=== PATIENT | male | born 1955 | race Caucasian/White ===

== ENCOUNTER 2022-05-15 07:37 | Emergency (ER) | payer MEDICARE, BC, SELFPAY ==
[2022-05-15] VITALS (9 sets, daily range): BP systolic 107–129; BP diastolic 59–69; PULSE 51–62; RESP 16–18; TEMP 36.3; O2SAT 96–99; BMI 25.8
--- NOTE | 2022-05-15 08:05 | CRLHL7_ITS ---
For Patients: As a result of the Century Cures Act, medical imaging exams and procedure reports are released immediately into your electronic medical record. You may view this report before your referring provider. If you have questions, please contact your health care provider. INDICATION: Right flank pain. TECHNIQUE: CT abdomen and pelvis without contrast. COMPARISON: 01/18/2021. FINDINGS: Lower chest: Unremarkable. Liver: Normal in size and attenuation. No suspicious masses. Gallbladder and bile ducts: No stones or inflammation. No biliary dilatation. Pancreas: Unremarkable. No mass or inflammation. Spleen: Normal in size. No masses. Adrenal glands: Normal in size. No nodules. Kidneys: A 5 millimeter stone in the distal right ureter results and mild right hydroureteronephrosis. Additional small nonobstructing right renal calculus. No left renal calculi or left hydronephrosis. Left renal cyst. GI tract: Unremarkable. Normal in caliber. No sign of mass or inflammation. Prior partial colectomy with ileocolic anastomosis. Vasculature: Atherosclerosis. 3.0 centimeter infrarenal abdominal aortic aneurysm. 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 Lymph nodes: No lymphadenopathy. Peritoneum/Abdominal Wall: Unremarkable. No sign of mass or infiltration. No free air or significant free fluid. Pelvis: Prostatomegaly Bones: No acute osseous abnormality. Degenerative spondylosis IMPRESSION: 1. 5 millimeter stone in the distal right ureter results in mild right hydronephrosis. 2. Additional small nonobstructing right renal calculus. 3. 3.0 centimeter infrarenal abdominal aortic aneurysm. 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 Please note that all CT scans at this facility use dose modulation, iterative reconstruction, and/or weight-based dosing when appropriate to reduce radiation dose to as low as reasonably achievable. Dictated by Shan Jackman MD @ 05/15/2022 8:46:40 AM (Electronically Signed)
[2022-05-15] MEDS: KETOROLAC 30 MG/ML inj IVP ×2 (08:20→10:49)
[2022-05-15] MEDS: ONDANSETRON 2 MG/ML inj 4 MG IVP (08:20)
[2022-05-15] MEDS: 0.9 % SODIUM CHLORIDE 1000 ml 1,000 ML IV ×3 (08:30→10:19)
[2022-05-15 08:32] LABS: Basophils Percent Auto 0.5 % (0.0-3.0); Eosinophils Percent Auto 6.4 % (0.0-7.0); Hematocrit 42.1 % (37.0-53.0); Hemoglobin* 14.4 gm/dL (13.5-17.5); Immature Granulocytes Pct Auto 0.2 %; Lymphocytes Percent Auto 26.4 % (20-44); Mean Corpuscular HGB Conc 34 gm/dL (32-36); Mean Corpuscular Hemoglobin 33 pg (26-34); Mean Corpuscular Volume 96 fL (80-100); Monocytes Percent Auto 8.6 % (0.0-11.0); Neutrophils Percent Auto 57.9 % (42.0-72.0); Platelet Count* 222 K/uL (140-440); RDW Coefficient of Variation % 12.9 % (11.5-15.5)
--- NOTE | 2022-05-15 08:37 | ED_ITS ---
HPI - Abdominal Pain General Date Seen: 05/15/22 Chief Complaint: Flank Pain Stated Complaint: poss kidney stone Time Seen by Provider: 05/15/22 07:43 Source: patient and family Mode of arrival: ambulatory Limitations: no limitations History of Present Illness HPI narrative: Patient is a ej 58-year-old gentleman who is retired presents here with his with an hour hour and a half history of right-sided abdominal pain, it started in his back and wraps around goes to his groin, he has a past history of kidney stones associated with this. With much the same pain pattern. Previous instrumentation was done, after he felt the past these, he has a urologist up in the [facility] who comes down to see him, . Has some nausea but has not vomited, did not take anything for the discomfort, denies any diarrhea dysuria frequency hematuria associated with this. Previous appendectomy done but he still has his gallbladder. Does not seem to have any thing that makes it better at the current time. Pain comes and goes in a colicky type presentation. Related Data Home Medications Medication Instructions Recorded Confirmed betamethasone dipropionate 0.05 % 1 topical BID 10/12/21 05/09/22 lotion doxycycline monohydrate 100 mg mg PO BID 10/12/21 05/09/22 capsule fexofenadine 180 mg tablet 180 mg PO Q24H 10/12/21 05/09/22 (Allergy Relief (fexofenadine)) fluticasone propionate 50 2 intranasal DAILY 10/12/21 05/09/22 mcg/actuation nasal spray,suspension rfpwdojhgzy-zqdxaxcchre-idz C 500 tab PO DAILY 10/12/21 05/09/22 mg-400 mg-20 mg tablet hydrocodone 5 mg-acetaminophen 325 tab PO PRN 10/12/21 05/09/22 mg tablet ketorolac 10 mg tablet mg PO TID PRN 10/12/21 05/09/22 lansoprazole 15 mg capsule,delayed 15 mg PO QDAY 10/12/21 05/09/22 release stidkylr-qsvsldyxj-dlynjryza 3.5 4 drp otic (ear) TID 10/12/21 05/09/22 mg-10,000 unit/mL-1 % ear drops,susp ondansetron HCl 4 mg tablet mg PO PRN 10/12/21 05/09/22 oxycodone 5 mg tablet mg PO PRN 10/12/21 05/09/22 tamsulosin 0.4 mg capsule 0.4 mg PO DAILY 10/12/21 05/09/22 Allergies Allergy/AdvReac Type Severity Reaction Status Date / Time oxycodone AdvReac Intermediate Verified 05/09/22 10:39 UNLISTED ALLERGEN (INCLUDE Allergy Unknown Uncoded 05/09/22 10:39 DETAIL I VENOM-YELLOW JACKET Allergy Unknown Uncoded 05/09/22 10:39 Review of Systems Status of ROS Reports: 10 or more systems reviewed and unremarkable except as noted in History and below [facility] Social History Smoking Status: Never smoker Non-prescribed substance use: denies use Exam Narrative: Exam Narrative: Patient is speaking normally, no problem with slurring words, oriented x3. Head eyes ears nose and throat exam show equal pupils, no scleral icterus, extraocular muscles are normal, no facial droop, speech is normal, trachea normal and midline. Thyroid normal midline palpable not enlarged. Chest shows symmetrical rise bilaterally, normal auscultation with no wheezes, no increased work of breathing, no overt bruising or lesions seen, no tenderness is noted on auscultation. Heart sounds normal with no S3-S4 no murmurs clicks or gallops. Abdomen shows no obvious masses or hepatosplenomegaly, no organomegaly, bowel sounds are normal in all quadrants. No tenderness is noted also in all qu adrants. Upper and lower extremities show normal power, normal range of motion, pulses are normal, sensations normal, fine motor movements are normal, pelvis is stable to rocking. Cervical spine shows normal range of motion, and palpably not tender. Thoracic spine shows normal range of motion, and palpably not tender, lumbar spine shows no tenderness to palpation percussion and is otherwise normal range of motion. Skin shows no rashes, petechiae or eccymosis. Const: Vital Signs, click to edit/add: Vital Signs - 24 hr 05/15/22 07:47 05/15/22 08:42 05/15/22 09:00 Temperature 97.4 F L Pulse Rate 52 L 51 L Pulse Rate [Right Pulse Oximeter] 58 L Respiratory Rate 18 Blood Pressure Blood Pressure [Ri ght Upper Arm] 128/63 Pulse Oximetry 97 96 97 Oxygen Delivery Me thod Room Air Room Air 05/15/22 09:02 05/15/22 09:30 05/15/22 09:32 Temperature Pulse Rate 54 L 54 L 55 L Pulse Rate [Right Pulse Oximeter] Respiratory Rate Blood Pressure 107/62 115/62 Blood Pressure [Ri ght Upper Arm] Pulse Oximetry 97 98 97 Oxygen Delivery Me thod 05/15/22 10:00 05/15/22 10:02 05/15/22 12:09 Temperature Pulse Rate 57 L 58 L Pulse Rate [Right Pulse Oximeter] 62 Respiratory Rate 16 Blood Pressure 111/59 L Blood Pressure [Ri ght Upper Arm] 129/69 Pulse Oximetry 99 98 99 Oxygen Delivery Me thod Documenting provider has reviewed patient's vital signs: yes Course Course Hospital Course: Discussed with the patient we will start an IV, will give some Toradol and Zofran as this has worked very well for him in the past we will give him IV fluids we will get some labs, and then we will get a CT to further delineate this. Reevaluation(s) Reevaluation #1: Bc feels much improved, his pain is markedly gone away. He still has not been able to urinate for us. And we will give another L of fluids. I went over the results of his test which showed the distal 5 mm right-sided stone in his ureter. He did have a flu jirg-fn-vvopogtz hydronephrosis, gave him copies of his CT and also the report. He has a small 3 cm abdominal aneurysm in iliac aneurysm also. This will need to be followed up with likely ultrasound in 3-6 months. Time: 09:32 Reevaluation #2: Mr. Veliz still does not have the urge to pee, I think it would be reasonable let him go home, he can bring a urine back, follow-up for his abdominal aortic aneurysm and iliac aneurysm, with his regular provider for screening. This will need to be done every 3 months to 6 months per the recommendations. He was comfortable this. Time: 13:07 Vital Signs Vital signs: Initial Vital Signs Temperature 97.4 F L 05/15/22 07:47 Temperature Source Temporal Artery Scan 05/15/22 07:47 Pulse Rate 58 L 05/15/22 07:47 Respiratory Rate 18 05/15/22 07:47 Blood Pressure 128/63 05/15/22 07:47 Blood Pressure Mean 84 05/15/22 07:47 Blood Pressure Position Sitting 05/15/22 07:47 Pulse Oximetry 97 05/15/22 07:47 Oxygen Delivery Method 05/15/22 07:47 Vital Signs Temperature 97.4 F L 05/15/22 07:47 Pulse Rate 58 L 05/15/22 07:47 Respiratory Rate 18 05/15/22 07:47 Blood Pressure 128/63 05/15/22 07:47 Pulse Oximetry 97 05/15/22 07:47 Oxygen Delivery Method 05/15/22 07:47 Temperature 97.4 F L 05/15/22 07:47 Pulse Rate 62 05/15/22 12:09 Respiratory Rate 16 05/15/22 12:09 Blood Pressure 129/69 05/15/22 12:09 Pulse Oximetry 99 05/15/22 12:09 Oxygen Delivery Method 05/15/22 08:42 MDM - Abdominal Pain MDM Narrative Medical decision making narrative: During this evaluation of this patient I considered multiple differential diagnosis is which included the life-threatening such as appendicitis, aortic aneurysm, mesenteric ischemia, bowel perforation, volvulus, and bowel obstruction. Other differential diagnosis is include but are not limited to cholecystitis, pancreatitis, hepatitis, gastritis, GERD, diverticulitis, peptic ulcer disease, pyelonephritis/UTI, renal colic/stone, testicular torsion as well as other acute scrotal processes, inflammatory bowel disease, as well as other etiologies Medical Records Attestation: I reviewed the patient's medical records. Lab Data Attestation: I reviewed the patient's lab results. Labs: Lab Results 05/15/22 05/15/22 05/15/22 Range/Units 08:05 08:20 08:20 WBC 4.20 L (4.50-11.00) K/uL RBC 4.40 (4.30-5.90) m/uL Hgb 14.4 (13.5-17.5) gm/dL Hct 42.1 (37.0-53.0) % MCV 96 (80-100) fL MCH 33 (26-34) pg MCHC 34 (32-36) gm/dL RDW Coeff of Ronald 12.9 (11.5-15.5) % Plt Count 222 (140-440) K/uL Neut % (Auto) 57.9 (42.0-72.0) % Lymph % (Auto) 26.4 (20-44) % Hanson % (Auto) 8.6 (0.0-11.0) % Eos % (Auto) 6.4 (0.0-7.0) % Baso % (Auto) 0.5 (0.0-3.0) % Neut # (Auto) 2.40 (1.7-7.0) K/uL Lymph # (Auto) 1.10 (0.90-2.90) K/uL Hanson # (Auto) 0.40 (0.00-0.90) K/UL Eos # (Auto) 0.30 (0.00-0.50) K/uL Baso # (Auto) 0.00 (0.00-0.30) K/uL Sodium 140 (135-149) mmol/L Potassium 3.7 (3.6-5.1) mmol/L Chloride 113 (96-114) mmol/L Carbon Dioxide 25 (20-32) mmol/L BUN 16 (7-30) mg/dL Creatinine 0.6 (0.5-1.5) mg/dL Estimated Creat Clear 73.00 Estimated GFR 105 ml/min Glucose 104 (60-115) mg/dL Calcium 9.0 (8.4-10.6) mg/dL Total Bilirubin 0.9 (0.1-1.5) mg/dL Direct Bilirubin 0.1 (0.0-0.5) mg/dL AST 25 (12-35) U/L ALT 19 (4-50) U/L Alkaline Phosphatase 76 (40-150) U/L C-Reactive Protein (0.5-1.0) mg/dL Total Protein 6.5 (6.0-8.3) g/dL Albumin 3.7 (3.3-5.0) g/dL SARS-CoV-2 (PCR) Negative SARS-CoV-2 (Negative) Influenza Type A (PCR) Negative PCR FLU A (Negative) Influenza Type B (PCR) Negative PCR FLU B (Negative) RSV (PCR) Negative PCR RSV (Negative) 05/15/22 Range/Units 08:20 WBC (4.50-11.00) K/uL RBC (4.30-5.90) m/uL Hgb (13.5-17.5) gm/dL Hct (37.0-53.0) % MCV (80-100) fL MCH (26-34) pg MCHC (32-36) gm/dL RDW Coeff of Ronald (11.5-15.5) % Plt Count (140-440) K/uL Neut % (Auto) (42.0-72.0) % Lymph % (Auto) (20-44) % Hanson % (Auto) (0.0-11.0) % Eos % (Auto) (0.0-7.0) % Baso % (Auto) (0.0-3.0) % Neut # (Auto) (1.7-7.0) K/uL Lymph # (Auto) (0.90-2.90) K/uL Hanson # (Auto) (0.00-0.90) K/UL Eos # (Auto) (0.00-0.50) K/uL Baso # (Auto) (0.00-0.30) K/uL Sodium (135-149) mmol/L Potassium (3.6-5.1) mmol/L Chloride (96-114) mmol/L Carbon Dioxide (20-32) mmol/L BUN (7-30) mg/dL Creatinine (0.5-1.5) mg/dL Estimated Creat Clear Estimated GFR ml/min Glucose (60-115) mg/dL Calcium (8.4-10.6) mg/dL Total Bilirubin (0.1-1.5) mg/dL Direct Bilirubin (0.0-0.5) mg/dL AST (12-35) U/L ALT (4-50) U/L Alkaline Phosphatase (40-150) U/L C-Reactive Protein < 0.5 L (0.5-1.0) mg/dL Total Protein (6.0-8.3) g/dL Albumin (3.3-5.0) g/dL SARS-CoV-2 (PCR) (Negative) Influenza Type A (PCR) (Negative) Influenza Type B (PCR) (Negative) RSV (PCR) (Negative) Imaging Data CT scan - abdomen: Attestation: I have reviewed the pertinent imaging results. My impression: 5 mm stone in the distal right UVJ with moderate hydronephrosis. Radiologist's impression: atient: ALYSSA VELIZ Facility:?[facility] Patient ID:?[id number] Site Patient ID:?[id number]. Site :?[id number] Study:?CT Abdomen/Pelvis W/O stone study-05/15/2022 8:35:36 AM Ordering Physician:Humza Romo Final Report: INDICATION: Right flank pain. TECHNIQUE: CT abdomen and pelvis without contrast. COMPARISON: 01/18/2021. FINDINGS: Lower chest: Unremarkable. Liver: Normal in size and attenuation. No suspicious masses. Gallbladder and bile ducts: No stones or inflammation. No biliary dilatation. Pancreas: Unremarkable. No mass or inflammation. Spleen: Normal in size. No masses. Adrenal glands: Normal in size. No nodules. Kidneys: A 5 millimeter stone in the distal right ureter results and mild right hydroureteronephrosis. Additional small nonobstructing right renal calculus. No left renal calculi or left hydronephrosis. Left renal cyst. GI tract: Unremarkable. Normal in caliber. No sign of mass or inflammation. Prior partial colectomy with ileocolic anastomosis. Vasculature: Atherosclerosis. 3.0 centimeter infrarenal abdominal aortic aneurysm. 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 Lymph nodes: No lymphadenopathy. Peritoneum/Abdominal Wall: Unremarkable. No sign of mass or infiltration. No free air or significant free fluid. Pelvis: Prostatomegaly Bones: No acute osseous abnormality. Degenerative spondylosis IMPRESSION: 1. 5 millimeter stone in the distal right ureter results in mild right hydronephrosis. 2. Additional small nonobstructing right renal calculus. 3. 3.0 centimeter infrarenal abdominal aortic aneurysm. 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 Please note that all CT scans at this facility use dose modulation, iterative reconstruction, and/or weight-based dosing when appropriate to reduce radiation dose to as low as reasonably achievable. Dictated by Shan Jackman MD @ 05/15/2022 8:46:40 AM (Electronic Signature) Discharge Plan Discharge Clinical Impression: Abdominal aortic aneurysm (AAA), Aneurysm artery, iliac, Urolithiasis, Renal colic on right side, Right nephrolithiasis Patient Disposition: Home w/ Parent or Adult Condition: Improved Instructions: Renal Colic (ED), Nonruptured Abdominal Aortic Aneurysm (DC), Lithotripsy (DC) Additional Instructions: Home rest continue to drink fluids, taking medications as directed, hold off on any ibuprofen for the next 8 hours, then you may start taking ibuprofen 600 mg 3 times a day. Need to let the Toradol washout of your system. I gave you prescription for narcotic, take the Vicodin 1-2 tablets p.o. q.i.d. as needed, if you have increasing nausea vomiting pain fevers chills the need to come back and be seen, follow-up with her primary care physician or Dr. Alicia in if he still of ongoing symptoms are back in the ER. Just have your drop off the urine back in the emergency room and we can run this to exclude bladder infection Prescriptions: No Action lansoprazole 15 mg capsule,delayed release(DR/EC) 15 mg PO QDAY twkqcrrgnwr-ioqrdfxrlum-vdp C 500-400-20 mg tablet PO DAILY fexofenadine [Allergy Relief (fexofenadine)] 180 mg tablet 180 mg PO Q24H oxycodone 5 mg tablet PO PRN ketorolac 10 mg tablet PO TID PRN ondansetron HCl 4 mg tablet PO PRN optugrrv-gtlzhbhnu-GB 3.5-10,000-1 mg/mL-unit/mL-% drops,suspension 4 drp otic (ear) TID betamethasone dipropionate 0.05 % lotion 1 topical BID hydrocodone-acetaminophen 5-325 mg tablet PO PRN fluticasone propionate 50 mcg/actuation spray,suspension 2 intranasal DAILY doxycycline monohydrate 100 mg capsule PO BID tamsulosin 0.4 mg capsule 0.4 mg PO DAILY Follow Up/Referrals: Mitesh Ayala MD [Primary Care Provider] - Stand Alone Forms: IngagePatient Info Instructions
[2022-05-15 08:41] LABS: Slide Review Reflex No
[2022-05-15 08:47] LABS: Albumin* 3.7 g/dL (3.3-5.0); Chloride* 113 mmol/L (96-114); Sodium* 140 mmol/L (135-149)
[2022-05-15 08:48] LABS: Potassium* 3.7 mmol/L (3.6-5.1)
[2022-05-15 08:50] LABS: Bilirubin Direct* 0.1 mg/dL (0.0-0.5); Bilirubin Total* 0.9 mg/dL (0.1-1.5); Blood Urea Nitrogen* 16 mg/dL (7-30); Carbon Dioxide* 25 mmol/L (20-32); Creatinine* 0.6 mg/dL (0.5-1.5); Estimated Glomerular Filt Rate 105 ml/min; Total Protein* 6.5 g/dL (6.0-8.3)
[2022-05-15 08:51] LABS: Alanine Aminotransferase* 19 U/L (4-50); Alkaline Phosphatase* 76 U/L (40-150); Aspartate Amino Transferase* 25 U/L (12-35); Glucose* 104 mg/dL (60-115)
[2022-05-15 09:06] LABS: C Reactive Protein* < 0.5 mg/dL (0.5-1.0)
[2022-05-15 09:16] LABS: PCR FLU A Negative PCR FLU A (Negative); PCR FLU B Negative PCR FLU B (Negative); PCR RSV Negative PCR RSV (Negative)
[2022-05-15 09:19] LABS: SARS PCR* Negative SARS-CoV-2 (Negative)
--- NOTE | 2022-05-15 10:52 | ED.NURSE ---
medicated for return of pain
[2022-05-15] MEDS: HYDROCODONE-ACETAMIN 5-325 MG 1 TAB PO (12:07)
[2022-05-15 14:04] LABS: Appearance Urine Cloudy (Clear); Bilirubin Urine Negative (Negative); Blood Urine 3+ (Negative); Color Urine Yellow (Yellow); Glucose Urine Negative (Negative); Ketones Urine 2+ (Negative); Leukocyte Esterase Urine Negative (Negative); Nitrite Urine Negative (Negative); Protein Urine 1+ (Negative); Specific Gravity Urine >= 1.030 (1.000-1.030); Urobilinogen Urine 0.2 (0.2-1.0); pH Urine 5.5 (5.0-8.5)
[2022-05-15 14:10] LABS: Squamous Epithelial Cell Urine Few (None-Few)
[2022-05-15 14:20] LABS: Amorphous Sediment Urine Few; Bacteria Urine Moderate; RBC Urine >100 (0-2)
[2022-05-15 14:21] LABS: Mucus Urine Moderate
== END 2022-05-15 13:05 | disposition home or self-care (01) ==
PROVIDERS: Emergency Provider Family Medicine; PCP Family Medicine
DX: I71.40 Abdominal aortic aneurysm, without rupture, unspecified (principal); N20.2 Calculus of kidney with calculus of ureter; I72.3 Aneurysm of iliac artery
CPT/HCPCS: 36415; 74176; 80048; 80076; 81001; 85025; 86140; 87086; 87502; 87634; 87635; 96374; 96375; 96376; 99284; A9270; J1885; J2405; J7030

== ENCOUNTER 2024-04-07 13:37 | Emergency (ER) | payer MEDICARE, BC, SELFPAY ==
[2024-04-07 13:45] VITALS: PULSE 73; RESP 16; TEMP 36.7; O2SAT 96; BMI 26.5
--- NOTE | 2024-04-07 14:10 | CRLHL7_ITS ---
For Patients: As a result of the Century Cures Act, medical imaging exams and procedure reports are released immediately into your electronic medical record. You may view this report before your referring provider. If you have questions, please contact your health care provider. Indication: Fall Technique: Right wrist 3 view Comparison: None Findings: Bones: Alignment is normal. No fractures or bone lesions. Joint spaces: Mild degenerative changes. Soft tissues: Unremarkable. Impression: No sign of acute injury in the right wrist. Dictated by Lake Do MD @ 04/07/2024 2:54:47 PM (Electronically Signed)
--- NOTE | 2024-04-07 14:10 | CRLHL7_ITS ---
For Patients: As a result of the Cures Act, medical imaging exams and procedure reports are released immediately into your electronic medical record. You may view this report before your referring provider. If you have questions, please contact your health care provider. INDICATION: Fall with pain TECHNIQUE: Two views COMPARISON: None FINDINGS: Bones: Alignment is normal. No fractures or bone lesions. Joint spaces: Unremarkable. Soft tissues: Unremarkable. IMPRESSION: Negative. Dictated by Jonah Gonzalez MD @ 04/07/2024 2:55:11 PM (Electronically Signed)
--- NOTE | 2024-04-07 14:10 | CRLHL7_ITS ---
For Patients: As a result of the Century Cures Act, medical imaging exams and procedure reports are released immediately into your electronic medical record. You may view this report before your referring provider. If you have questions, please contact your health care provider. INDICATION: Fall. Head trauma. TECHNIQUE: CT head without contrast. COMPARISON: None FINDINGS: CSF spaces: Within normal limits for age. Mild diffuse volume loss commensurate with age. Brain parenchyma: The martinez-white differentiation is normal. No sign of mass, hemorrhage, or midline shift. Skull base and calvarium: The visualized paranasal sinuses and mastoid air cells are clear. The visualized orbits are grossly unremarkable. No skull fractures. IMPRESSION: Unremarkable noncontrast head CT. Please note that all CT scans at this facility use dose modulation, iterative reconstruction, and/or weight-based dosing when appropriate to reduce radiation dose to as low as reasonably achievable. Dictated by Jonah Gonzalez MD @ 04/07/2024 2:52:52 PM (Electronically Signed)
--- NOTE | 2024-04-07 14:21 | ED_ITS ---
HPI - Fall General Chief Complaint: Fall/Minor Trauma Stated Complaint: fall head laceration Time Seen by Provider: 04/07/24 13:57 History of Present Illness HPI Narrative: This 68-year-old male comes in with injuries from a fall. He was walking [place] a [place] path and attempted to kick some snow. It was frozen solid to the path and he tripped over at. He fell hitting his forehead and his right arm. He did not have loss of consciousness. He has an abrasion over his nose and a stellate laceration on his forehead. He also complains of pain in his right wrist extending up toward his right elbow. He was able to get up and ambulate. He does not report any headache or neck pain. He is not on anticoagulants. Related Data Home Medications ?Medication ?Instructions ?Recorded ?Confirmed betamethasone dipropionate 0.05 % 1 topical BID 10/12/21 07/04/23 lotion doxycycline monohydrate 100 mg mg PO BID 10/12/21 07/04/23 capsule fexofenadine 180 mg tablet 180 mg PO Q24H 10/12/21 07/04/23 (Allergy Relief (fexofenadine)) fluticasone propionate 50 2 intranasal DAILY 10/12/21 07/04/23 mcg/actuation nasal spray,suspension mpxwgihemnz-fhtpntmjvxr-jiw C 500 tab PO DAILY 10/12/21 07/04/23 mg-400 mg-20 mg tablet hydrocodone 5 mg-acetaminophen 325 tab PO PRN 10/12/21 07/04/23 mg tablet ketorolac 10 mg tablet mg PO TID PRN 10/12/21 07/04/23 lansoprazole 15 mg capsule,delayed 15 mg PO QDAY 10/12/21 07/04/23 release rlmpnnfl-hoqjmbukm-ngcbsxnst 3.5 4 drp otic (ear) TID 10/12/21 07/04/23 mg-10,000 unit/mL-1 % ear drops,susp ondansetron HCl 4 mg tablet mg PO PRN 10/12/21 07/04/23 oxycodone 5 mg tablet mg PO PRN 10/12/21 07/04/23 tamsulosin 0.4 mg capsule 0.4 mg PO DAILY 10/12/21 07/04/23 Allergies Allergy/AdvReac Type Severity Reaction Status Date / Time oxycodone AdvReac Intermediate Verified 07/04/23 14:26 UNLISTED ALLERGEN (INCLUDE Allergy Unknown Uncoded 07/04/23 14:26 DETAIL I VENOM-YELLOW JACKET Allergy Unknown Uncoded 07/04/23 14:26 Review of Systems Status of ROS: Reports: 10 or more systems reviewed and unremarkable except as noted in History and below Narrative: Constitutional: No fevers, no weight gain or loss. Eyes: No discharge. No vision changes. HENT: No congestion, no sore throat, no ear pain. Cardiovascular: No chest pain, no palpitations. Respiratory: No shortness of breath, no wheezes, no cough. Gastrointestinal: No abdominal pain, no vomiting, no diarrhea. Genitourinary: No dysuria, no hematuria. Musculoskeletal: Normal range of motion. Right wrist and forearm pain. Skin: No rashes, no pruritis. Neurological: No dizziness, weakness, sensory change, speech change. Endo/Heme/Allergies: No bruising or bleeding. No polydipsia. Pysch: no suicidality, no anxiety, no insomnia. All other systems reviewed and are negative. [facility] Social History Smoking Status: Never smoker Non-prescribed substance use: denies use Exam Narrative: Exam Narrative: Constitutional: Well-developed, well-nourished, no acute distress. HEENT: Abrasion on his nose and a stellate laceration in the mid forehead. Neck: Normal range of motion. Nontender. Supple. Heart: Regular. No murmurs. Normal rate. Intact distal pulses. Lungs: Clear to auscultation. No chest discomfort. No wheezes, rhonchi, or rales. Abdomen: Normal bowel sounds. Nontender. No rebound tenderness. Genitalia: Deferred. Back: No midline tenderness. Normal range of motion. Extremities: Pain in the right wrist extending up toward his right elbow. No sign of deformity or swelling. Skin: Intact. No rash. Warm. No erythema or pallor. Neurologic: No altered sensation. No weakness. Alert and oriented. Psychiatric: No suicidality. No anxiety or depression. No insomnia. Nursing notes and vitals signs are reviewed. Const: Vital Signs, click to edit/add: Vital Signs - 24 hr 04/07/24 13:45 Temperature 98.1 F Pulse Rate [Radial ] 73 Respiratory Rate 16 Pulse Oximetry 96 Oxygen Delivery Me thod Room Air Course Vital Signs Vital signs: Initial Vital Signs Temperature 98.1 F 04/07/24 13:45 Temperature Source Temporal Artery Scan 04/07/24 13:45 Pulse Rate 73 04/07/24 13:45 Pulse Rhythm Regular 04/07/24 13:45 Respiratory Rate 16 04/07/24 13:45 Pulse Oximetry 96 04/07/24 13:45 Oxygen Delivery Method Room Air 04/07/24 13:45 Vital Signs Temperature 98.1 F 04/07/24 13:45 Pulse Rate 73 04/07/24 13:45 Respiratory Rate 16 04/07/24 13:45 Pulse Oximetry 96 04/07/24 13:45 Oxygen Delivery Method Room Air 04/07/24 13:45 Temperature 98.1 F 04/07/24 13:45 Pulse Rate 73 04/07/24 13:45 Respiratory Rate 16 04/07/24 13:45 Pulse Oximetry 96 04/07/24 13:45 Oxygen Delivery Method Room Air 04/07/24 13:45 MDM - Fall MDM Narrative Medical decision making narrative: This patient comes in for evaluation of injuries that occurred from a fall as described above. A CT scan of his head is obtained and shows no acute findings. X-ray of the right wrist and forearm also is negative for any kind of fracture or malalignment. The patient received a wrist splint and the wound on his forehead was cleansed. I recommended Dermabond repair as there is a small area of full-thickness injury. Instructions regarding wound care were given. A Band-Aid was applied over the forehead wound. Imaging Data CT scan - head: Radiologist's impression: Unremarkable noncontrast head CT. XR R Wrist/Forearm: Radiologist's impression: No sign of acute injury in the right wrist. Forearm: Negative. Discharge Plan Discharge Clinical Impression: Forehead laceration, Right wrist sprain Patient Disposition: Home w/ Parent or Adult Condition: Stable Additional Instructions: Wear wrist splint as needed and increase activity as tolerated. Use anpe-jlg-ztsssnh medicines also as needed and directed. Follow up with MD return if worsening. Prescriptions: No Action lansoprazole 15 mg capsule,delayed release(DR/EC) 15 mg PO QDAY qmlouoeayno-kknasnrnhbl-ojl C 500-400-20 mg tablet PO DAILY fexofenadine [Allergy Relief (fexofenadine)] 180 mg tablet 180 mg PO Q24H oxycodone 5 mg tablet PO PRN ketorolac 10 mg tablet PO TID PRN ondansetron HCl 4 mg tablet PO PRN nbfynufi-braptawey-OC 3.5-10,000-1 mg/mL-unit/mL-% drops,suspension 4 drp otic (ear) TID betamethasone dipropionate 0.05 % lotion 1 topical BID hydrocodone-acetaminophen 5-325 mg tablet PO PRN fluticasone propionate 50 mcg/actuation spray,suspension 2 intranasal DAILY doxycycline monohydrate 100 mg capsule PO BID tamsulosin 0.4 mg capsule 0.4 mg PO DAILY Follow Up/Referrals: Mitesh Ayala MD [Primary Care Provider] - Stand Alone Forms: [facility] Info Instructions
--- OUTSIDE RECORDS SUMMARY | 2024-04-07 14:30 | XMS_ITS | Clinical Summary ---
Author Organization [facility] Address [address] [address] Phone Care Team Providers Care Sample Preparation Supervisor Name Role Phone Elsewhere, Pcp Primary Care Provider Unavailabl e Allergies No known active allergies Medications Fexofenadine HCl (LAURA OR) Take by mouth. Active OMEPRAZOLE OR Take by mouth. Active Social History Tobacco Use Types Packs/Day Years Used Date Smoking Tobacco: Never Assessed Sex and Gender Information Value Date Recorded Sex Assigned at Not on file Legal Sex Male 7:23 PM CDT Gender Identity Not on file Sexual Orientation Not on file Last Filed Vital Signs Vital Sign Reading Time Taken Comments Blood Pressure 120/82 12/27/2012 7:32 PM CDT Pulse 83 12/27/2012 7:32 PM CDT Temperature 36.7 C (98 F) 12/27/2012 7:32 PM CDT Respiratory Rate 16 12/27/2012 7:32 PM CDT Oxygen Saturation 95% 12/27/2012 7:32 PM CDT Inhaled Oxygen Concentration - - Weight 90.7 kg (200 lb) 12/27/2012 7:32 PM CDT Height 180.3 cm (5' 11) 12/27/2012 7:32 PM CDT Body Mass Index 27.89 12/27/2012 7:32 PM CDT Plan of Treatment Not on file Insurance [employer] [place] Care Teams Sample Preparation Supervisor Relationship Specialty Start Date End Date Elsewhere, Pcp PCP - General 12/27/12
--- OUTSIDE RECORDS SUMMARY | 2024-04-07 14:30 | XMS_ITS | Clinical Summary ---
Author Organization [facility] [employer] [facility] Address [place], [place] [address] Care Team Providers Care Production Artist Name Role Phone Beth Yanes Abril Unavailable [phone] Mitesh Ayala MD Primary Care Provider [phone] Allergies Active Allergy Reactions Criticality Noted Date Comments Unlisted Allergen (Include Detail In Comments) 01/23/2007 hayfever type allergy-nasal congestion Oxycodone-Acetaminop hen Nausea And Vomiting 12/31/2012 Venom-Yellow Jacket Hives 05/03/2020 Medications fexofenadine (LAURA) 180 mg tabletIndications: Allergic rhinitis, cause unspecified Take 1 tablet by mouth once daily. 90 tablet 3 4 Active betamethasone, augmented dipropianate 0.05% (DIPROLENE AF) 0.05 % cream Apply topically to affected area(s). Three times weekly on Saturday, Saturday, and Saturday 9 Active niacinamide 500 mg tabletIndications: Arthralgia, unspecified joint Take 1 tablet by mouth once daily. 90 tablet 3 1 Active tadalafiL (CIALIS) 5 mg tablet Take 5 mg by mouth once daily. 3 Active ketoconazole 2% topical (NIZORAL) cream Apply topically to affected area(s) once daily. Active fluticasone (50 mcg per actuation) nasal solution (FLONASE)Indicatio ns:Seasonal allergic rhinitis due to pollen Inhale 2 Sprays to both nostrils once daily. INHALE TWO SPRAYS INTO EACH NOSTRIL ONCE DAILY 15.8 mL 4 4 Active omeprazole (PRILOSEC) 20 mg Delayed-Release capsuleIndications :Gastroesophageal reflux disease, unspecified whether esophagitis present Take 1 Capsule (20 mg) by mouth once daily before a meal. 90 Capsule 3 4 Active tamsulosin (FLOMAX) 0.4 mg capsuleIndications :Prostatic hypertrophy Take 2 Capsules (0.8 mg) by mouth once daily after a meal. 180 Capsule 4 4 Active atorvastatin (LIPITOR) 20 mg tabletIndications: Other hyperlipidemia Take 1 Tablet (20 mg) by mouth at bedtime. 90 Tablet 3 4 Active ibuprofen (ADVIL; MOTRIN) 800 mg tabletIndications: Arthralgia, unspecified joint TAKE ONE TABLET BY MOUTH THREE TIMES DAILY NEEDED FOR PAIN 270 Tablet 4 Active Active Problems Problem Noted Date Diagnosed Date Infrarenal abdominal aortic aneurysm (AAA) witho ut rupture 05/18/2022 Urinary tract obstruction by kidney stone 2020 Iliac aneurysm 04/29/2018 Kidney stones 07/29/2017 Mixed hearing loss, unilateral 07/11/2010 Overview (07/11/2010): Moderate to severe mixed loss with conductive component in low frequencies, TM perforation Sensorineural hearing loss, unilateral 1 Overview (07/11/2010): right, flat mild loss Perforation of tympanic membrane, unspecified Overview (07/11/2010): left ear, has had for a few years. History of ear infection from ear flushing for cerumen management Polyp of colon 07/23/2008 Overview (03/21/2021): Colonoscopy 04/2012 polyps repeat in 3 years Colonoscopy 01/2016 polyp repeat in 5 years Colonoscopy 03/2021 normal, repeat in 5 years, PEG 4L Other and unspecified hyperlipidemia 12/17/2007 Back pain 12/16/2007 Allergic rhinitis, cause unspecified 10/28/2006 Esophageal reflux 10/28/2006 Resolved Problems Problem Noted Date Diagnosed Date Resolved Date Melanoma of skin 02/05/2019 Encounters Date Type Department Care Team Description 02/13/2024 10:00 AM [employer] Telemedicine [facility] [address] [place] [id number] David Ambrose MD 02/11/2024 1:36 PM [employer] - 02/11/2024 11:59 PM [employer] Hospital Encounter [address] [address] David Ambrose MD Iliac aneurysm (HC); Infrarenal abdominal aortic aneurysm (AAA) without rupture (HC) 02/11/2024 Travel 01/21/2024 Telephone [facility] [address] [place] [id number] David Ambrose MD Error-please disregard 01/21/2024 Telephone [facility] [address] [place] [id number] David Ambrose MD Follow Up from Last 3 Months Immunizations Name Administration Dates Next Due COVID-19 vaccine (Moderna 100mcg/0.5mL) ALYSSA NEFF 07/01/2020,06/03/2020 Hepatitis B, Unspecified 09/01/1997,07/28/1997 Influenza A (H1N1), Inactivated 03/09/2009 Influenza A (H1N1), Inactiva rob (Age >=3 Years) 03/27/2009 Influenza RIV4 (Age 18+ Year s) PRESERV FREE 01/08/2020,01/27/2019 Influenza, High-dose Quadriv alent Inactivated 01/19/2023,01/02/2022,12/20/2020 Influenza, IIV3 (Age 6-35 mos) 12/22/2008 Influenza, IIV3 (Age >=3 years) 01/07/20 14,01/09/2013,01/02/2012,12/22 Influenza, IIV4 03/03/2018,01/21/2016 Influenza, IIV4 (=>6mos) MDV 01/28/2017 Pneumococcal Poly,23-Valent (Pneumovax) 05/03/2020 Pneumococcal conj 13-Valent (Prevnar 13) 04/28/2019 Td (Age >=7 Years) 06/28/2016,07/30/2008, 997 Tdap 10/28/2006 10/28/2016 Zoster (Shingrix-RZV, recombinant) 08/12/2018, Zoster (Zostavax-ZVL, live) 03/23/2013 Family History Medical History Relation Name Comments Good Health Brother Cancer Father lung of th is at 71 Other Father lung ca smoked 5 packs per day Cancer Mother lung of th is at age 72 Other Mother lung ca Relation Name Status Comments Brother Alive Father (Age 66) Mother (Age 69) Social History Tobacco Use Types Packs/Day Years Used Date Smoking Tobacco: Former Cigarettes 1 25 0 04/08/1971 - 04/08/1996 Pipe Smokeless Tobacco: Never Tobacco Cessation:Counseling Given: Not Answered Alcohol Use Standard Drinks/Week Comments Not Currently 0 (1 standard drink = 0.6 oz pur e alcohol) social PHQ-2 Answer Date Recorded PHQ-2 TOTAL SCORE 0 05/24/2023 Social Connections Answer Date Recorded Frequency of Communication with Friends and Fami ly 0 11/15/2021 Alcohol Use Answer Date Recorded How often do you have a drink containing alcohol ? 1 05/24/2023 How many drinks containing a lcohol do you have on a typical day when you are drinking? 0 05/24/2023 How often do you have five or more drinks on one occasion? 0 05/24/2023 Financial Resource Strain Answer Date R ecorded Difficulty of Paying Living Expenses 3 11/15/2021 Difficulty of Paying Living Expenses Not on file 11/15/2021 Food Insecurity Answer Date Recorded Worried About Running Out of Food in the Last Ye ar 1 11/15/2021 Transportation Needs Answer Date Record ed Lack of Transportation (Medical) 1 11/15/2021 Housing Stability Answer Date Recorded Unable to Pay for Housing in the Last Year 1 11/15/2021 Sex and Gender Information Value Date Recorded Sex Assigned at Not on file Legal Sex Male 5:24 AM [employer] Gender Identity Not on file Sexual Orientation Not on file Occupation Industry Job Start Date Job End Date [facility] Not on file Not on f ile Not on file retired Not on file Not on file Not on file Obstetrics History Last Filed Vital Signs Vital Sign Reading Time Taken Comments Blood Pressure 120/70 05/24/2023 8:28 AM [employer] Pulse 76 05/24/2023 8:28 AM [employer] Temperature 36.6 C (97.8 F) 05/24/2023 8:28 AM [employer] Respiratory Rate 18 03/13/2021 8:36 AM [employer] Oxygen Saturation 97% 05/24/2023 8:28 AM [employer] Inhaled Oxygen Concentration - - Weight 83.6 kg (184 lb 6.4 oz) 05/24/2023 8:28 A M [employer] Height 178.8 cm (5' 10.39) 05/24/2023 8:[address] Body Mass Index 26.16 05/24/2023 8:28 AM [employer] Plan of Treatment Upcoming Encounters Date Type Department Care Team (Late st Contact Info) Description 04/13/2024 11:00 AM [employer] Appointment [facility] [address] [place] [address] Health Maintenance Due Date Last Done Comments COVID-19 vaccine series ( season) 2023 08/25/2021, 02/02/2021, 07/01/2020, Additional history exists Influenza for age 65+ 12/08/2023 01/19/2023 , 01/02/2022, 12/20/2020, Additional history exists BMI (ht and wt on same day) for age 18+ 05/24/2024 05/24/2023, 05/18/2022, 05/15/2021, Additional history exists Depression screening for age 12+ 05/24/2024 05/24/2023, 05/20/2022, 05/18/2022, Additional history exists Medicare Wellness for age 65+ 05/24/2024, 05/18/2022, 05/15/2021, Additional history exists Colonoscopy through age 75 03/21/202603/21, 03/21/2021, 02/02/2016, Additional history exists Tetanus booster 06/28/2026 06/28/2016, 04/2 07/2008, 10/28/2006, Additional history exists Lipids for age 45-75 05/24/2028 05/24/2023, 05/16/2022, 11/13/2021, Additional history exists RSV vaccine for adults or (1 - 1-dose 75+ series) 2028 Tdap Completed 10/28/2006 Zoster (shingles) series for age 50+ Completed 08/12/2018, 06/05/2018, 03/23/2013 Hepatitis C screening for ag e 18-79 Completed 05/03/2020 Pneumococcal series for age 50+ Completed , 04/28/2019 AAA screening age 65-74 Completed 02/11/20 24, 01/28/2023, 01/31/2022, Additional history exists Medical Devices Implanted Type Area Adult Live In Caregiver Device Identifier Shelf Expiration Date Model / Serial / Lot Stent Uret [id number] Contour - [id number] Implanted:Qty: 1 on 01/23/2021 by Jimmy Pierre MD at [facility] Left: [facility]re[facility] [id number] / / [id number] Procedures Procedure Name Priority Date/Time Associated Diagnosis Comments CT ABDOMEN PELVIS WO Routine 02/11/2024 2:02 PM [employer] Iliac aneurysm (HC) Infrarenal abdominal aortic aneurysm (AAA) without rupture (HC) LIPID PANEL W REFLEX MEASURED LDL Routine 05/24/2023 9:42 AM [employer] Other hyperlipidemia COLONOSCOPY 03/21/2021 7:30 AM [employer] ANTI HCV Routine 05/03/2020 9:10 AM [employer] Encounter for hepatitis C screening test for low risk patient from Last 3 Months or Most Recently Relevant to Health Maintenance Results * CT ABDOMEN PELVIS WO (02/11/2024 2:02 PM [employer]) Anatomical Region Laterality Modality Abdomen, Pelvis, AORTA, LIVER, SPLEEN Computed Tomography 02/12/2024 7:57 AM [employer] Impressions 02/12/2024 7:57 AM [employer] 1. Infrarenal abdominal aortic aneurysm and right common iliac artery aneurysms stable and unchanged from the prior studies. No additional interval vascular abnormality. 2. Right nephrolithiasis and left renal cyst unchanged. Single new microcalcifications in the right and left kidney. No downstream calculi or hydronephrosis. 3. Remaining CT of the abdomen and pelvis unchanged from the prior study. Please note that all CT scans at this facility use dose modulation, iterative reconstruction, and/or weight-based dosing when appropriate to reduce radiation dose to as low as reasonably achievable. Dictated by Iram Woodard MD @ 02/12/2024 7:57:40 AM (Electronically Signed) Narrative 02/12/2024 7:57 AM [employer] For Patients: As a result of the Cures Act, medical imaging exams and procedure reports are released immediately into your electronic medical record. You may view this report before your referring provider. If you have questions, please contact your health care provider. INDICATION: Follow-up abdominal aortic and iliac aneurysms TECHNIQUE: CT abdomen and pelvis without contrast. COMPARISON: 01/28/2023 FINDINGS: Lower chest: Unremarkable. Liver: Unremarkable. Spleen: Unremarkable. Pancreas: Unremarkable. Gallbladder and bile ducts: Unremarkable. Kidneys: 3 mm nonobstructing calculi right kidney and left renal cyst unchanged. New 2 mm right and left renal calculi. No hydro nephrosis or downstream calculi. Adrenal glands: Unremarkable. GI tract: Ascending colon enterocolonic anastomosis intact. Moderate stool. No obstructive bowel pattern. Vascular structures: Atherosclerotic infrarenal abdominal aortic aneurysm measures 3.1 x 3.1 cm which is unchanged. Right common iliac artery aneurysm measures 2.3 x 2.3 cm versus 2.2 x 2.3 cm and is unchanged. No evidence of interval complication. Lymph nodes: Unremarkable. Miscellaneous: 1 centimeter ring calcification anterior right pelvis unchanged. No free air or significant free fluid. No abdominal wall hernia. Pelvic Organs: Prostatomegaly. Uterus and bladder normal. Ovaries not identified. Bones: Degenerative spine. No lytic or osteoblastic lesions. Procedure Note Eleuterio Woodard MD - 02/12/2024 For Patients: As a result of the Cures Act, medical imagingexams and procedure reports are released immediately into your electronicmedical record. You may view this report before your referring provider.If you have questions, please contact your health care provider. INDICATION: Follow-up abdominal aortic and iliac aneurysms TECHNIQUE: CT abdomen and pelvis without contrast. COMPARISON: 01/28/2023 FINDINGS: Lower chest: Unremarkable. Liver: Unremarkable. Spleen: Unremarkable. Pancreas: Unremarkable. Gallbladder and bile ducts: Unremarkable. Kidneys: 3 mm nonobstructing calculi right kidney and left renal cystunchanged. New 2 mm right and left renal calculi. No hydro nephrosis ordownstream calculi. Adrenal glands: Unremarkable. GI tract: Ascending colon enterocolonic anastomosis intact. Moderatestool. No obstructive bowel pattern. Vascular structures: Atherosclerotic infrarenal abdominal aortic aneurysmmeasures 3.1 x 3.1 cm which is unchanged. Right common iliac arteryaneurysm measures 2.3 x 2.3 cm versus 2.2 x 2.3 cm and is unchanged. Noevidence of interval complication. Lymph nodes: Unremarkable. Miscellaneous: 1 centimeter ring calcification anterior right pelvisunchanged. No free air or significant free fluid. No abdominal wallhernia. Pelvic Organs: Prostatomegaly. Uterus and bladder normal. Ovaries notidentified. Bones: Degenerative spine. No lytic or osteoblastic lesions. IMPRESSION: 1. Infrarenal abdominal aortic aneurysm and right common iliac arteryaneurysms stable and unchanged from the prior studies. No additionalinterval vascular abnormality. 2. Right nephrolithiasis and left renal cyst unchanged. Single newmicrocalcifications in the right and left kidney. No downstream calculi orhydronephrosis. 3. Remaining CT of the abdomen and pelvis unchanged from the priorstudy. Please note that all CT scans at this facility use dose modulation,iterative reconstruction, and/or weight-based dosing when appropriate toreduce radiation dose to as low as reasonably achievable. Dictated by Iram Woodard MD @ 02/12/2024 7:57:40 AM (Electronically Signed) us David Ambrose MD CT Final Result * LIPID PANEL W REFLEX MEASURED LDL (05/24/2023 9:42 AM [employer]) CHOLESTEROL,TOTAL 135 100 - 199 mg/dL 05/24/2023 5:04 PM [employer] [facility] Comment: Cholesterol, Total Reference Ranges Desirable <200 mg/dL Borderline 200-239 mg/dL High >=240 mg/dL TRIGLYCERIDES 59 <150 mg/dL 05/24/2023 5:04 PM [employer] [facility] HDL CHOLESTEROL 57 >40 mg/dL 5:04 PM [employer] [facility] NON-HDL CHOLESTEROL 78 <145 mg/dl 05/24/2023 5:04 PM [employer] [facility] CHOL/HDL RATIO 2.37 <4.50 05/24/2023 5:04 PM [employer] [facility] LDL CHOLESTEROL 66 <=130 mg/dL 05/24/2023 5:04 PM [employer] [facility] VLDL CHOLESTEROL 12 <=30 mg/dL 05/24/2023 5:04 PM [employer] [facility] PROVIDER ORDERED STATUS RANDOM 05/24/2023 5:04 PM [employer] [facility] Blood BLOOD SPECIMEN / Unknown Venipuncture / Unknown 05/24/2023 9:42 AM [employer] 05/24/2023 9:42 AM [employer] us Mitesh Ayala MD CHEMISTRY Final Resu lt [facility] [address] [place] [address], [place] * COLONOSCOPY (03/21/2021 7:30 AM [employer]) 03/21/2021 7:30 AM [employer] Narrative Transcriptions Lee Vickers MD - 03/21/2021 8:34 AM CST Patient Name: Jonah Hernandes Procedure Date: 03/21/2021 Gender: Male Date of : 1955 Admit Type: Outpatient Procedure: Colonoscopy Proceduralist: Lee Vickers MD , Hilda Marie (Nurse) Indications/Pre-Op Diagnosis: High risk colon cancer surveillance:Personal history of adenoma (10 mm or greater insize), High risk colon cancer surveillance:Personal history of multiple (3 or more) adenomas Medications: Fentanyl 100 micrograms IV, Midazolam 4 mgIV, The level of sedation administered wasmoderate Procedure Description: The patient had risks, benefits and alternatives explained to andgave informed consent. The patient had a stable cardiopulmonary status and judged an adequate candidate for conscious sedation. The colonoscope was passed through the anus and advanced to theterminal ileum. The colonoscopy was performed without difficulty. The patient tolerated the procedure well. The quality of the bowel preparationwas good. The terminal ileum, ileocecal valve, appendiceal orifice, and rectum were photographed. Complications: No immediate complications. Estimated Blood Loss & Specimen: Estimated blood loss: none. Specimen collected - None Findings: The perianal and digital rectal examinations were normal. The colon (entire examined portion) was mildly redundant. There was evidence of a prior end-to-side ileo-colonic anastomosis in the ascending colon. This was patent and was characterized by healthy appearing mucosa. The exam was otherwise without abnormality on direct and retroflexion views. Impressions/Post-Op Diagnosis: - Redundant colon. - Patent end-to-side ileo-colonic anastomosis, characterized byhealthy appearing mucosa. - The examination was otherwise normal on direct and retroflexionviews. - No specimens collected. Recommendation: - Patient has a contact number available for emergencies. The signsand symptoms of potential delayed complications were discussed with the patient. Return to normal activities tomorrow. Written discharge instructions were provided to the patient. - Resume previous diet. - Continue present medications. - Repeat colonoscopy in 5 years for surveillance. - For future colonoscopy the patient will require an extended preparation, peg 4L. If there are any questions, please contact the thread inspector. Moderate Sedation: Moderate (conscious) sedation was administered by the endoscopy nurse and supervised by the endoscopist. The following parameters were monitored: oxygen saturation, heart rate, respiratory rate, blood pressure, adequacy of pulmonary ventilation and reponse to care. Please refer to the patient's medical record flowsheets and nursing notes for moderate sedation details. Total physician intraservice time was 21 minutes. Lee Vickers MD 03/21/2021 8:34:38 AM This report has been signed electronically. Note Initiated On: 03/21/2021 7:30 AM Procedure Code(s): --- Professional --- 07984, Colonoscopy, flexible; diagnostic, including collection of specimen(s) bybrushing or washing, when performed (separateprocedure) Diagnosis Code(s): --- Professional --- Z98.0, Intestinal bypass and anastomosisstatus Z86.010, Personal history of colonicpolyps Q43.8, Other specified congenitalmalformations of intestine CPT copyright 2020 [employer]. All rights reserved. The codes documented in this report are preliminary and upon residential subcontractor reviewmay be revised to meet current compliance requirements. Scope In: 8:07:55 AM Scope Withdrawal Time 0 hours 9 minutes 53 seconds Scope Out: 8:26:51 AM Lee Vickers MD PROCEDURE ORD Final Res ult * ANTI HCV (05/03/2020 9:10 AM [employer]) HEPATITIS C ANTIBODY Non-React jessica Non-React jessica 05/03/2020 4:59 PM [facility] [facility] Comment:Antibodies to HCV no t detected; does not exclude the possibility of exposure to HCV. Blood BLOOD SPECIMEN / Unknown Venipuncture / Unknown 05/03/2020 9:10 AM [employer] 05/03/2020 9:10 AM [employer] us Alexi Ramsay MD SEND OUTS Final Resu lt [facility] [address] [place] [address], [place] from Last 3 Months or Most Recently Relevant to Health Maintenance Insurance [place] ONLY MEDICARE PART A HB ONLY MEDICARE PART B HB ONLY [place] BL[place] MR PB ONLY Advance Directives Documents on File Type Date Recorded Patient Application Programmer Analyst Expl anation Healthcare Directive 06/11/2019 INCOMPL ETE, MISSING PAGES, 06/11/2019 * Full Code (Latest Code Status on File) Date Activated Date Inactivated Comments 01/23/2021 2:49 PM 01/24/2021 2:25 PM Question Answer Comments Code Status Discussion: Not Discussed * Full Code Date Activated Date Inactivated Comments 01/30/2013 10:03 AM 01/30/2013 6:37 PM Care Teams Production Artist Relationship Specialty Start Date End Date Mitesh Ayala MD [facility] [place] [address] PCP - General Family Practice 05/03/20 Beth Yanes AuD Audiology 01/23/07
--- OUTSIDE RECORDS SUMMARY | 2024-04-07 14:31 | XMS_ITS | Encounter Summary ---
Author Organization [facility] Address [address] [address] Phone Care Team Providers Care Medical Clerk Name Role Phone Elsewhere, Pcp Primary Care Provider Unavailabl e Reason for Visit * Reason Comments Finger Laceration Encounter Details Date Type Department Care Team (Late st Contact Info) Description 12/27/2012 8:05 PM CDT - 12/27/2012 9:01 PM CDT Emergency [facility] Emergency Department [address] [place] [id number] Maurice Wheeler MD [address] [place] [id number] Finger laceration (Primary Dx) Discharge Disposition: Discharged Social History Tobacco Use Types Packs/Day Years Used Date Smoking Tobacco: Never Assessed Sex and Gender Information Value Date Recorded Sex Assigned at Not on file Legal Sex Male 7:23 PM CDT Gender Identity Not on file Sexual Orientation Not on file documented as of this encounter Last Filed Vital Signs Vital Sign Reading [...] Mass Index 27.89 12/27/2012 7:32 PM CDT documented in this encounter Discharge Instructions * Discharge Instructions* Maurice Wheeler MD - 12/27/2012 8:50 PM CDT Images from the original note were not included. Sutures out in 7-10 days. No getting wet for the first 24 hours. Ok to shower after that. Watch for signs of infection. LACERATION (All Closures) A??laceration is a cut through the skin. This will usually require stitches (sutures) or maddie ifit is deep. Minor cuts may be treated with a tape closure (???Steri-Strips?? ) or??skin glue. HOME CARE Medications: You may use acetaminophen (Tylenol) or ibuprofen (Motrin, Advil) to control pain, unless another pain medicine was prescribed. [NOTE: If you have chronic liver or kidney disease or ever had a stomach ulcer or GI bleeding, talk with your doctor before using these medicines.] ?? EXTREMITY, FACE or TRUNK WOUNDS: ?? Keep the wound clean and dry. If a bandage was applied and it becomes wet or dirty, replace it. Otherwise, leave it in place for the first 24 hours. ?? If stitches or maddie were used, clean the wound daily ?? After removing the bandage, wash the area with soap and water. Use a wet cotton swab (Q tip) to loosen and remove any blood or crust that forms. ?? After cleaning, apply a thin layer of Polysporin or Bacitracin ointment. This will keep the wound clean and make it easier to remove the stitches or maddie. Reapply a fresh bandage. ?? You may remove the bandage to shower as usual after the first 24 hours, but do not soak the areain water (no swimming) until the stitches or maddie are removed. ?? If Steri-Strips were used, keep the area clean and dry. If it becomes wet, blot it dry with a towel. ?? If skin glue was used, do not scratch, rub or pick at the adhesive film. Do not place tape directly over the film. Do not apply liquid, ointment or creams to the wound while the film is in place. Do not clean the wound with peroxide and do not apply ointments. Avoid activities that cause heavy sweating until the film has fallen off. Protect the wound from prolonged exposure to sunlight or tanning lamps. You may shower as usual but do not soak the wound in water (no baths or swimming). The film will fall off by itself in 5-10 days. SCALP WOUNDS: During the first two days, you may carefully rinse your hair in the shower to remove blood, glass or dirt particles. After two days, you may shower and shampoo your hair normally. Do not soak your scalp in the tub or go swimming until the stitches or maddie have been removed. ?? MOUTH WOUNDS: Eat soft foods to reduce pain. If the cut is inside of your mouth, clean by rinsing after each meal and at bedtime with a mixture of equal parts water and Hydrogen Peroxide (do not swallow!). Or, you can use a cotton swab to directly apply Hydrogen Peroxide onto the cut. Mouth wounds can be painful when eating. You may use a local numbing solution such as Anbesol (comes in Baby, Regular and Maximum strength) for pain relief. If this is not available, you may use any numbing solution for teething babies. You may apply this directly to the sores with a cotton-tip swab or with yourfinger. ?? FOLLOW UP: Most skin wounds heal within ten days. Mouth and facial wounds heal within five days. However, even with proper treatment, a wound infection may sometimes occur. Therefore, you should check the wound daily for signs of infection listed below. Stitches should be removed from the face within five days; stitches and maddie should be removed from other parts of the body within 7-14 days. If dissolving stitches were used in the mouth, these will fall out or dissolve without the need for removal. If tape closures (???Steri-Strips?? ) were used, remove them yourself if they have not fallen off after 7 days. If??skin glue was used, the film will fall off by itself in 5-10 days. ?? GET PROMPT MEDICAL ATTENTION if any of the following occur: ?? Bleeding not controlled by direct pressure ?? Signs of infection, including increasing pain in the wound, increasing wound redness or swelling, or pus coming from the wound ?? Fever of 100.4??F (38??C) or higher, or as directed by your health care provider ?? Stitches or maddie come apart or fall out or Steri-Strips fall off before 7 days ?? Wound edges re-open ?? [id number] [employer], [address] [place] [address], [place] [address]. All rights reserved. This information is not intended as a substitute for professional medical care. Always follow your healthcare professional's instructions. documented in this encounter Medications at Time of Discharge Fexofenadine HCl (LAURA OR) Take by mouth. OMEPRAZOLE OR Take by mouth. documented as of this encounter Discharge Disposition Disposition Code Departure Means Destination Discharged Home documented in this encounter ED Notes * Latrice Vazquez RN - 12/27/2012 9:00 PM CDT Bacitracin applied to left middle finger and gauze dressing applied. Pt discharge instructions reviewed, pt denies any questions. Pt states that he plans to follow up in his home town for suture removal. * Maurice Wheeler MD - 12/27/2012 8:31 PM CDTAssociated Order(s): LACERATION REPAIR Patient Jonah Hernandes Chief Complaint Finger Laceration HPI The patient is a 57-year-old male who presents today with a chief complaint of a finger laceration.The patient reports that he was cutting some hamburger patties with a knife when it slipped lacerating his left third finger. He was able to control the bleeding with pressure. He was otherwise uninjured in the accident. He is up to date on his tetanus. Review of Systems Please see HPI for pertinent positives and negatives. No Known Allergies Discharge Medication List as of 12/27/2012 8:50 PM CONTINUE these medications which have NOT CHANGED Details Fexofenadine HCl (LAURA OR) Take by mouth.Historic OMEPRAZOLE OR Take by mouth.Historic Past Medical History: GERD Allergies Social History: He does not smoke. Exam: BP 120/82 Pulse 83 Temp(Src) 98 ??F (36.7 ??C) (Oral) Resp 16 Ht 1.803 m (5' 11) Wt 90.719 kg (200 lb) BMI 27.91 kg/m2 SpO2 95% Physical Exam GEN: NAD, appear comfortable at rest. Left middle finger: There is a 1.5 cm, well approximated laceration of the volar aspect of his leftmiddle finger. Neuro: Alert, oriented x3. Other Results: Emergency Department Course: Procedures: Laceration repair Date/Time: 12/27/2012 8:52 PM Performed by: MAURICE WHEELER Authorized by: MAURICE WHEELER Consent: Verbal consent obtained. Consent given by: patient Patient understanding: patient states understanding of the procedure being performed Patient identity confirmed: verbally with patient Body area: upper extremity Location details: left long finger Laceration length: 1.5 cm Tendon involvement: none Nerve involvement: none Anesthesia: digital block Local anesthetic: lidocaine 1% without epinephrine Anesthetic total: 10 ml Patient sedated: no Irrigation solution: saline Amount of cleaning: standard Skin closure: 4-0 nylon Number of sutures: 6 Technique: simple Approximation: close Approximation difficulty: simple Dressinx4 sterile gauze and antibiotic ointment Marcelina Issa, MAGALIE student performed the laceration repair under my supervision. Assessment: (883.0) Finger laceration (primary encounter diagnosis) Plan: Discharge to home. Follow up with primary MD in 7-10 days for suture removal. [facility] Maurice Wheeler MD 01/05/13 0617 * Latrice Vazquez RN - 12/27/2012 8:12 PM CDT Pt states that he was trying to get apart some frozen hamburger patties and isn't sure what happened but ended up cutting his left middle finger between the first and second knuckle. Bleeding is controled at this time, area cleaned with some sterile saline. Pt tolerated procedure well. * Latrice Navarro - 12/27/2012 8:05 PM CDT Pt given afresh ice pack. Denies any further needs at this time, waiting in waiting room with . * Latrice Navarro - 12/27/2012 7:30 PM CDT PT was using a knife to split apart 2 hamburger patties and knife slipped and cut his left third finger around 1900. documented in this encounter Plan of Treatment Not on file documented as of this encounter Procedures Procedure Name Priority Date/Time Associated Diagnosis Comments REPR SUPERF WND BODY <2.5CM 01/05/2013 6:17 AM CDT Finger laceration documented in this encounter Results * REPR SUPERF WND BODY <2.5CM (01/05/2013 6:17 AM CDT) Narrative Maurice Wheeler MD - 01/05/2013 6:17 AM CDT Maurice Wheeler MD 01/05/2013 6:17 AM Patient Jonah Hernandes Chief Complaint Finger Laceration HPI The patient is a 57-year-old male who presents today with a chief complaint of a finger laceration. The patient reports that he was cutting some hamburger patties with a knife when it slipped lacerating his left third finger. He was able to control the bleeding with pressure. He was otherwise uninjured in the accident. He is up to date on his tetanus. Review of Systems Please see HPI for pertinent positives and negatives. No Known Allergies Discharge Medication List as of 12/27/2012 8:50 PM CONTINUE these medications which have NOT CHANGED Details Fexofenadine HCl (LAURA OR) Take by mouth.Historic OMEPRAZOLE OR Take by mouth.Historic Past Medical History: GERD Allergies Social History: He does not smoke. Exam: BP 120/82 Pulse 83 Temp(Src) 98 F (36.7 C) (Oral) Resp 16 Ht 1.803 m (5' 11) Wt 90.719 kg (200 lb) BMI 27.91 kg/m2 SpO2 95% Physical Exam GEN: NAD, appear comfortable at rest. Left middle finger: There is a 1.5 cm, well approximated laceration of the volar aspect of his left middle finger. Neuro: Alert, oriented x3. Other Results: Emergency Department Course: Procedures: Laceration repair Date/Time: 12/27/2012 8:52 PM Performed by: MAURICE WHEELER Authorized by: MAURICE WHEELER Consent: Verbal consent obtained. Consent given by: patient Patient understanding: patient states understanding of the procedure being performed Patient identity confirmed: verbally with patient Body area: upper extremity Location details: left long finger Laceration length: 1.5 cm Tendon involvement: none Nerve involvement: none Anesthesia: digital block Local anesthetic: lidocaine 1% without epinephrine Anesthetic total: 10 ml Patient sedated: no Irrigation solution: saline Amount of cleaning: standard Skin closure: 4-0 nylon Number of sutures: 6 Technique: simple Approximation: close Approximation difficulty: simple Dressinx4 sterile gauze and antibiotic ointment Marcelina Issa NP student performed the laceration repair under my supervision. Assessment: (883.0) Finger laceration (primary encounter diagnosis) Plan: Discharge to home. Follow up with primary MD in 7-10 days for suture removal. [facility] Procedure Note Maurice Wheeler MD - 12/27/2012 8:31 PM CDT Patient Jonah Hernandes Chief Complaint Finger Laceration HPI The patient is a 57-year-old male who presents today with a chiefcomplaint of a finger laceration. The patient reports that he was cuttingsome hamburger patties with a knife when it slipped lacerating his leftthird finger. He was able to control the bleeding with pressure. He wasotherwise uninjured in the accident. He is up to date on his tetanus. Review of Systems Please see HPI for pertinent positives and negatives. No Known Allergies Discharge Medication List as of 12/27/2012 8:50 PM CONTINUE these medications which have NOT CHANGED Details Fexofenadine HCl (LAURA OR) Take by mouth.Historic OMEPRAZOLE OR Take by mouth.Historic Past Medical History: GERD Allergies Social History: He does not smoke. Exam: BP 120/82 Pulse 83 Temp(Src) 98 F (36.7 C) (Oral) Resp 16 Ht1.803 m (5' 11) Wt 90.719 kg (200 lb) BMI 27.91 kg/m2 SpO2 95% Physical Exam GEN: NAD, appear comfortable at rest. Left middle finger: There is a 1.5 cm, well approximated laceration of thevolar aspect of his left middle finger. Neuro: Alert, oriented x3. Other Results: Emergency Department Course: Procedures: Laceration repair Date/Time: 12/27/2012 8:52 PM Performed by: MAURICE WHEELER Authorized by: MAURICE WHEELER Consent: Verbal consent obtained. Consent given by: patient Patient understanding: patient states understanding of the procedure beingperformed Patient identity confirmed: verbally with patient Body area: upper extremity Location details: left long finger Laceration length: 1.5 cm Tendon involvement: none Nerve involvement: none Anesthesia: digital block Local anesthetic: lidocaine 1% without epinephrine Anesthetic total: 10 ml Patient sedated: no Irrigation solution: saline Amount of cleaning: standard Skin closure: 4-0 nylon Number of sutures: 6 Technique: simple Approximation: close Approximation difficulty: simple Dressinx4 sterile gauze and antibiotic ointment Marcelina Issa NP student performed the laceration repair under mysupervision. Assessment: (883.0) Finger laceration (primary encounter diagnosis) Plan: Discharge to home. Follow up with primary MD in 7-10 days for sutureremoval. [facility] Maurice Wheeler MD 01/05/13 0617 Maurice Wheeler MD NW PROCEDURE ORDERABLES Yulissa l Result documented in this encounter Visit Diagnoses Diagnosis Finger laceration- Primary Open wound of finger(s) , without mention of complication documented in this encounter Historical Medications * This list may reflect changes made after this encounter. OMEPRAZOLE OR Take by mouth. Fexofenadine HCl (LAURA OR) Take by mouth. added in this encounter Care Teams Medical Clerk Relationship Specialty Start Date End Date Elsewhere, Pcp PCP - General 12/27/12 documented as of this encounter
[2024-04-07 15:24] VITALS: BP 112/60; PULSE 79; RESP 16
== END 2024-04-07 15:25 | disposition home or self-care (01) ==
PROVIDERS: Emergency Provider Emergency Medicine Emergency Medical Services; PCP Family Medicine
DX: S01.81XA Laceration without foreign body of other part of head, initial encounter (principal); S63.501A Unspecified sprain of right wrist, initial encounter; W01.198A Fall on same level from slipping, tripping and stumbling with subsequent striking against other object, initial encounter
CPT/HCPCS: 12011; 70450; 73090; 73110; 99283; 99284

== ENCOUNTER 2024-04-30 10:16 | Emergency (ER) | payer MEDICARE, BC, SELFPAY ==
--- OUTSIDE RECORDS SUMMARY | 2024-04-30 10:18 | XMS_ITS | Data Portability ---
Author Organization [facility], [facility] Address [address] [place] [address] Care Team Providers Care Clinical Services Manager Name Role Phone CHALO ABREU Primary Care Provider Assessment No assessment recorded. Plan of Treatment Reminders Order Date Submit Date Provider Last Modified By Organization Details Last Modified Time Details Appointments PSA 10 2024 10:00A M [facility] Not available Not available Not available ESTABL ISHED 10 2024 10:20A M Jimmy Pierre MD Not available Not available Not available Lab urinal ysis, dipsti ck 2022 023 [facility], [address], [place], [address], 06/06/2022 16:06:49 PSA, total, serum or plasma 2022 023 [email or web address] [facility], [address], [place], [address], 06/07/2022 09:03:54 PSA, serum or plasma 2022 023 [facility], [address], [place], [address], 12/05/2022 16:25:28 PSA, total, serum or plasma 2022 023 [email or web address] [facility], [address], [place], [address], 12/26/2022 09:51:32 PSA, serum or plasma 2023 024 [email or web address], [address], [place], [address], 03/23/2024 14:36:18 PSA, total, serum or plasma 2023 024 [email or web address] [facility], [address], [place], [address], 03/23/2024 15:35:45 Referral None record ed. Procedures None record ed. Surgeries None record ed. Imaging XR, kidney + ureter + bladde r 2021 022 [email or web address] [facility] , [address] [place], [address], 03/05/2022 11:11:21 XR, kidney + ureter + bladde r 2021 022 [facility] , [address] [place], [address], 02/20/2022 09:52:06 XR, kidney + ureter + bladde r [email or web address] [place] [address] , [address] [place], [address], 06/07/2022 10:42:42 US, scrotu m - PLEASE CALL PT TO SCHEDU LE 2023 024 [email or web address] [facility] (Radiology), [address] [place] [address] [place], [address], 04/06/2024 13:33:59 Medication Orders tadala hilaria 5 mg tablet 2021 022 [id number], [address], [address], 02/19/2022 14:52:51 tadala hilaria 5 mg tablet 2023 024 ELOY [id number], [address], [address], 03/23/2024 15:28:05 Patient TargetsNo targets recorded. Patient InstructionsNo instructions recorded. Reason for Referral None Reported. Results Created Date Observation Date Name Description Value Unit Range Abnormal Flag Note LastModifiedBy Organization Detail LastModifiedTime 06/07/1906/06/2022 urina lysis , dipst ick Color-Status Yellow Not Available [facility] [address], [place], [address], 06/06/2022 16:06:18 06/07/19 23 06/06/2022 urina lysis , dipst ick pH-Status 6.0 Not Available [facility] [address], [place], [address], 06/06/2022 16:06:18 06/07/19 23 06/06/2022 urina lysis , dipst ick Nitrates-Sta tus negati ve Not Available [facility] [address], [place], [address], 06/06/2022 16:06:18 06/07/19 23 06/06/2022 urina lysis , dipst ick Blood-Status Negati ve Not Available [facility] [address], [place], [address], 06/06/2022 16:06:18 06/07/19 23 06/06/2022 urina lysis , dipst ick Leuko-Status Negati ve Not Available [facility] [address], [place], [address], 06/06/2022 16:06:18 12/06/19 23 12/05/2022 PSA, serum or plasm a PSA 1.9ng/ ml 0-4.0 Not Available [facility] [address], [place], [address], 12/05/2022 16:24:51 03/23/20 24 03/23/2024 PSA, serum or plasm a PSA 2.4ng/ mL 0-4.0 NG/mL Not Available [facility] [address], [place], [address], 03/20/2024 15:16:58 02/16/20 22 01/31/2022 CT, abdom en + pelvi s, w/o contr ast No observ ation record ed. [email or web address] Not Available 2021 11:25:36 02/21/20 22 02/19/2022 XR, kidne y + urete r + bladd er No observ ation record ed. [facility] [address], [place], [address], 02/20/2022 23:35:32 06/07/19 23 06/06/2022 CT, abdom en + pelvi s, w/o contr ast EXAM: CT, ABDOME N AND PELVIS , W/O CONTRA ST LOCATI ON: [facility] [facility] DIRECTOR [facility]OLOG [facility] DATE/T GABRIELA: 06/07/19 23 3:00 PM INDICA TION: Calcul us of kidney . COMPAR PINKY: XR 2021, CT 2021. TECHNI QUE: CT scan of the abdome n and pelvis was perfor med withou t intrav enous contra st Multip lanar reform ats were obtain ed. Dose reduct ion techni ques were used. FINDIN GS: LOWER CHEST: Lung bases are clear. ABDOME N/PELV IS: Limite d evalua tion of the abdomi nal organs due to lack of intrav enous contra st. HEPATO BILIAR Y: The unenha nced liver and gallbl adder are grossl y unrema rkable . PANCRE : The unenha nced pancre as is grossl y unrema rkable . SPLEEN : No spleno megaly . ADRENA L GLANDS : No adrena l nodule s. KIDNEY S/BLAD KATALINA: There is 2 mm stone at the upper pole of the right kidney (serie s 2 image 60). No left kidney stone. No ureter al stone or hydron ephros is in either kidney . There is 3.6 cm cyst at the upper pole of the left kidney . The urinar y bladde r is unrema rkable . BOWEL: No abnorm ally dilate d bowel loops. Postsu rgical change s of the right colon. Modera te amount of stool throug hout the colon, nonspe cific, can be seen with consti pation . PERITO NEUM: No eviden ce of free fluid in the abdome n and pelvis . No free perito mauri or portal venous gas. PELVIC ORGANS : The prosta te gland is enlarg ed measur ing 5.5 cm in transv erse diamet er. VASCUL ATURE: Modera te athero sclero tic vascul ar calcif icatio n of the abdomi nal aorta and iliac vessel s. There is aneury smal dilata tion of the infrar enal abdomi nal aorta measur ing 3.1 cm in transv erse diamet er (serie s 4 image 65 and right common iliac artery measur ing 2.2 cm in diamet er. LYMPH NODES: No signif icant abdomi nopelv ic lympha denopa thy. MUSCUL OSKELE DELFINO: Small fat-co ntaini ng umbili kendell hernia . Multil evel degene rative change s of the spine. No suspic ious osseou s lesion . IMPRES JOSHUA: 1. 2 mm stone at the upper pole of the right kidney . No left kidney stone. No ureter al stone or hydron ephros is in either kidney . 2. Prosta tomega ly. 3. Aneury smal dilata tion of the infrar enal abdomi nal aorta measur ing 3.1 cm and right common iliac artery measur ing 2.2 cm. This report was electr onical ly interp reted by: Cally miramontes MD on 2022 at 16:59 [email or web address] [facility] [address], [place], [place], [address], 06/13/2022 10:22:07 12/07/19 23 12/05/2022 XR, kidne y + urete r + bladd er No observ ation record ed. [facility] [address] [place], [address], 12/07/2022 00:16:13 06/26/19 24 05/24/2023 US, scrot um No observ ation record ed. [email or web address] Not Available 2023 09:52:17 03/23/20 24 03/23/2024 XR, kidne y + urete r + bladd er EXAM: XR, KIDNEY + URETER + BLADDE R LOCATI ON: [facility] [employer] [place] DATE: 2023 INDICA TION: Calcul us of kidney COMPAR PINKY: 023 IMPRES JOSHUA: No radiog raphic eviden ce of nephro lithia sis. A 9 mm rounde d calcif icatio n the left hemiab domen eccent taryn to the left renal shadow is unchan ged. Normal bowel gas patter n. No aggres sive osseou s lesion . This report was electr onical ly interp reted by: Lyndsay Fu MD on 2023 at 16:06 [facility] [address], [place], [address], 03/23/2024 18:37:38 Result Notes None recorded. Procedures Surgical History Date Name Laterality Status Provider Name and Address Organization Details Recorded Time 03/23/20 24 Bladder Scan completed Jimmy Pierre MD [address], [place], [address], [facility] 03/23/2024 14:41:35 03/23/20 24 Blood Draw/CHIEF QUALITY OFFICER/PSA RESULTS completed Toma arriaga [facility] 03/23/2024 14:36:24 12/06/19 23 Bladder Scan completed Jimmy Pierre MD [address], [place], [address], [facility] 12/05/2022 16:24:06 12/06/19 23 Blood Draw/CHIEF QUALITY OFFICER/PSA RESULTS completed Jimmy Pierre MD [address] [place] [address],[address], [place], [address], [facility] 12/05/2022 16:24:27 06/07/19 23 Bladder Scan completed Jimmy Pierre MD [address] [place] [address],[address], [place], [address], [facility] 06/06/2022 16:06:14 procedure on hand completed Jimmy Pierre MD [address] [place] [address],[address], [place], [address], [facility] 02/19/2022 14:17:03 colonoscopic polypectomy completed Jimmy Pierre MD [address] [place] [address],[address], [place], [address], [facility] 02/19/2022 14:17:19 procedure on ear completed Jimmy griffith MD [address] [place] [address],[address], [place], [address], [facility] 02/19/2022 14:17:25 lithotripsy completed Jimmy Pierre MD [address] [place] [address],[address], [place], [address], [facility] 02/19/2022 14:17:45 Imaging Results Imaging Date Name Status LastModified by [facility] Details LastModified Time 01/31/2022 CT, abdomen + pelvis, w/o contrast completed [email or web address] Information not available 02/15/2022 11:25:36 02/19/2022 XR, kidney + ureter + bladder completed [facility] [address] [place], [address], 02/20/2022 23:35:32 06/06/2022 CT, abdomen + pelvis, w/o contrast completed [email or web address] [facility] [address] [place], [address], 06/13/2022 10:22:07 12/05/2022 XR, kidney + ureter + bladder completed [facility] [address], [place], [address], 12/07/2022 00:16:13 05/24/2023 US, scrotum completed [email or web address] Information n ot available 06/26/2023 09:52:17 03/23/2024 XR, kidney + ureter + bladder completed [facility] [place] [address], [place], [address], 03/23/2024 18:37:38 Procedure Notes None recorded. Medical Equipment None Reported. Allergies Allergen ID Allergen Name Allergen Category Reaction Reaction Severity Criticality Documentation Date Start Date Code Code System Note Provider Name and Address Organization Details Recorded Time [id number] acetamino phen / oxycodone medicatio n nausea Not available Not available 02/19/2022 73076 3 RxNorm Not Available Not Available Not Available Medications Name Sig Start Date Stop Date Status Note LastModified by Organization Details LastModified Time atorvastati n 20 mg tablet TAKE ONE TABLET BY MOUTH AT BEDTIME* active Not Available Not Available No t Available ibuprofen 800 mg tablet TAKE ONE TABLET BY MOUTH THREE TIMES DAILY NEEDED FOR PAIN* active Not Available Not Available No t Available hydrocodone 5 mg-acetamin ophen 325 mg tablet 12/05 completed Not Available Not Available Not Available betamethaso ne, augmented 0.05 % lotion apply to affected area(s) of the ear(s) by topical route twice daily as needed for flares.* active Not Available Not Available No t Available tamsulosin 0.4 mg capsule Take 2 Capsules (0.8 mg) by mouth once daily after a meal* active Not Available Not Available No t Available betamethaso ne dipropionat e 0.05 % topical cream apply to affected area(s) by topical route twice daily on saturday, saturday, and saturday .* active Not Available Not Available No t Available omeprazole 20 mg capsule,del ayed release Take 1 Capsule (20 mg) by mouth once daily before a meal* active Not Available Not Available No t Available ketoconazol e 2 % topical cream apply to affected area(s) by topical route once daily. active Not Available Not Available No t Available fluticasone propionate 50 mcg/actuati on nasal spray,suspe nsion INHALE TWO SPRAYS INTO EACH NOSTRIL ONCE DAILY* active Not Available Not Available No t Available doxycycline hyclate 100 mg tablet TAKE 1 TABLET BY MOUTH TWICE DAILY FOR 5 DAYS* 12/05 completed Not Available Not Available Not Available tadalafil 5 mg tablet TAKE ONE TABLET BY MOUTH ONE TIME DAILY* active Not Available Not Available No t Available Flowflex COVID-19 Antigen Home Test kit use as directed 03/23 completed Not Available Not Available Not Available Vitals Date Recorded Body height Provider Name an d Address Organization Details Last Updated DateTime 02/19/2022 180.34 cm Jimmy Pierre MD [address] [place] [address], [address], [facility] 02/19/2022 14:14:31 Date Recorded Body weight Provider Name an d Address Organization Details Last Updated DateTime 02/19/2022 74827.63 g Jimmy Pierre MD [address] [place] [address], [address], [facility] 02/19/2022 14:14:35 Date Recorded Body height Provider Name an d Address Organization Details Last Updated DateTime 06/06/2022 180.34 cm Jimmy Pierre MD [address] [place] [address],[address], [address], [facility] 06/06/2022 16:04:58 Date Recorded Body mass index (BMI) Body weight Provider Name and Address Organization Details Last Updated DateTime 06/06/2022 25.1 kg/m2 14603.63 g Jimmy Pierre MD [address] [place] [address],[address], [address], [facility] 06/06/2022 16:05:02 Date Recorded Body height Provider Name an d Address Organization Details Last Updated DateTime 12/05/2022 180.34 cm Jimmy Pierre MD [address] [place] [address],[address], [address], [facility] 12/05/2022 16:19:35 Date Recorded Body mass index (BMI) Body weight Provider Name and Address Organization Details Last Updated DateTime 12/05/2022 25.1 kg/m2 36232.63 g Jimmy Pierre MD [address] [place] [address],[address], [address] [place] [address] Urolog 12/05/2022 16:19:41 Date Recorded Body height Provider Name an d Address Organization Details Last Updated DateTime 03/23/2024 180.34 cm Jimmy Pierre MD [address] [place] [address] [place] [address] Urolog 03/23/2024 14:41:03 Date Recorded Body mass index (BMI) Body weight Provider Name and Address Organization Details Last Updated DateTime 03/23/2024 25.1 kg/m2 04066.63 g Jimmy Pierre MD [address] [place] [address],[place] [phone] [place] [address] 03/23/2024 14:41:06 Social History Question Answer Notes LastModified by Organizat ion Details LastModified Time Tobacco Smoking Status Former Smoker Jimmy Pierre MD [address] [place] [address], [address], [facility] 02/19/2022 14:16:19 Do You Have An Advance Directive? Yes Information not available 03/23/2024 What Is Your Level Of Alcohol Consumption? Occasional Information not available 12/05/2022 What Is Your Level Of Caffeine Consumption? None Information not available 02/19/2022 Are You Currently Employed? No Information not available 12/05/2022 When Did You Quit Smoking? 16+yearssincel astcigarette Information not available 02/19/2022 Recreational Drug Use No Information not available 12/05/2022 Do You Have A Medical Power Of Reference Data Expert? No Information not available 03/23/2024 What Was The Date Of Your Most Recent Tobacco Screening? 03/23/2024 Information not available 03/23/2024 Have You Ever Been Counseled For Unhealthy Alcohol Use? No Information not available 12/05/2022 What Is Your Relationship Status? Information not available 12/05/2022 Do You Use Any Illicit Or Recreational Drugs? No Information not available 02/19/2022 Has Tobacco Cessation Counseling Been Provided? No Information not available 12/05/2022 Do You Or Have You Ever Used Any Other Forms Of Tobacco Or Nicotine? No Information not available 03/23/2024 How Many Days In The Past Year Have You Consumed 5 Or More Drinks? 0 Information not available 12/05/2022 Sex: Male Functional Status None recorded. Mental Status None recorded. Family History Relationship Description Onset Age of this Age Resolved Age Notes LastModified by Organization Details LastModified Time Father Family history of malignant neoplasm Not available 2021 14:15:44 Mother Family history of malignant neoplasm Not available 2021 14:15:44 Medical History Condition Response Sexually Transmitted Infection N Diabetes N Bleeding Disorder N Other N High Blood Pressure N Kidney Stones Y Cancer Y Lung Disease N Depression N High Cholesterol N GERD/Acid Reflux Y Heart Disease N Past Encounters Encounter ID Performer Location Encounter Start Date Encounter Closed Date Diagnosis/Indication Diagnosis SNOMED-CT Code Diagnosis ICD10 Code Diagnosis Note [id number] Jimmy Pierre MD [facility] [address] [place] [address] 02/19/2022 13:58:01 02/23/2022 09:50:16 Lower urinary tract symptoms due to benign prostatic hypertrophy 1493763110 9101 N40.1 1. BPH- PSA (1.72) - remains low- has obstructiv e urinary symptoms- continue Flomax 0.8 mg daily- add Cialis 5 mg daily- check Bladder scan at Follow-up Kidney stone 24832423 N2 0.0 2. Kidney stones- reviewed CT scan (01/31/22) - Right - 3 mm stone (upper pole) - 4 mm stone (lower pole) - Left - no stones (increase in stone burden)- reviewed KUB (02/19/22) - no obvious stones seen- low UO (1.4 L) - recommend drinking 2.5 L of fluid per day- high Calcium (319 mg) - consider starting HCTZ (patient declined at this time due to urine frequency) - Follow-up in 6 months with KUB (consider ESWL if stones are seen) [id number] Jimmy Pierre MD [address] [place] [address] 06/06/2022 15:51:24 06/11/2022 14:02:59 Lower urinary tract symptoms due to benign prostatic hypertrophy 8678473050 9101 N40.1 1. BPH- has obstructiv e urinary symptoms (PVR = 72 mL)- continue Flomax 0.8 mg daily- continue Cialis 5 mg daily- Follow-up in 6 months with PSA and Bladder scan Kidney stone 68488888 N2 0.0 1. Kidney stones- reviewed CT scan (06/06/22) images - Right - 3 mm stone (upper pole) - Left - no stones- reviewed KUB (02/19/22) - no obvious stones seen- low UO (1.4 L) - recommend drinking 2.5 L of fluid per day- high Calcium (319 mg) - consider starting HCTZ (patient declined at this time due to urine frequency) - Follow-up in 6 months with KUB (consider ESWL if stones are seen) [id number] Jimmy Pierre MD [address] [place] [address] 12/05/2022 16:07:15 12/14/2022 17:25:25 Kidney stone 64092914 N20.0 1. Kidney stones- CT scan (06/06/22) - Right - 3 mm stone (upper pole) - Left - no stones- reviewed KUB (12/05/22) - no obvious stones seen- low UO (1.4 L) - recommend drinking 2.5 L of fluid per day- high Calcium (319 mg) - consider starting HCTZ (patient declined at this time due to urine frequency) - Follow-up in July with KUB(consid er ESWL if stones are seen) Lower urin deacon tract symptoms due to benign prostatic hypertrophy 1927344317 9101 N40.1 2. BPH- has obstructiv e urinary symptoms (PVR = 119 mL)- PSA (1.9) - stable- continue Flomax 0.8 mg daily- continue Cialis 5 mg daily(cons ider try Finasterid e 5 mg daily)(con nurse's companion further evaluation with [facility]- Follow-up in July 2023 with PSA and Bladder scan [id number] Jimmy Pierre MD [facility] [address] [place] [address] 03/23/2024 14:06:01 03/24/2024 14:03:39 Kidney stone 41633173 N20.0 1. Kidney stones- reviewed CT scan (02/11/24) images - Right - 3mm & 1 mm stones (upper pole) - 1 mm stone (mid-kidne y) - Left - 1 mm stone (lower pole)- reviewed KUB (03/23/24) images- no kidney stones seen - 9 mm calcificat ion (Left side) - correlates with calcificat ion near descending colon on recent CT scan- low UO (1.4 L) - recommend drinking 2.5 L of fluid per day- high Calcium (319 mg) - consider starting HCTZ (patient declined at this time due to urine frequency) - Follow-up in 1 year with KUB(consid er ESWL if stones are seen on KUB) Lower urin deacon tract symptoms due to benign prostatic hypertrophy 3498209049 9101 N40.1 2. BPH- has obstructiv e urinary symptoms - PVR = 76 mL (last PVR = 119 mL)- PSA (2.4) - increase- no nodule on MATILDE- continue Flomax 0.8 mg daily- continue Cialis 5 mg daily(cons ider try Finasterid e 5 mg daily)- check PSA in 3-4 months (at [facility])(co nsider further evaluation with [facility]- Follow-up in July 2023 with PSA and Bladder scan Adult hydrocele [id number] 9105 N43.3 3. Right hydrocele- appears benign- check Scrotal U/S - evaluate for possible testicular mass Health Concerns Section Related Observation LastModified by Organization Detai ls LastModified Time None Recorded Concern Status LastModified by Organization Details LastModified Time None Recorded Advance Directives Directive Y: Payers Encounter Date Sequence Insurance Name Policy Number Policy Ferguson Covered Member ID Ferguson Member ID Guarantor Name 02/19/2022 1 [place] [id number] Jonah Hernandes [id number] Jonah Hernandes 06/06/2022 1 [place] [id number] Jonah Hernandes [id number] Jonah Vieiraen 12/05/2022 1 [place] [id number] Jonah Hernandes [id number] Jonah Vieiraen 03/23/2024 1 [place] [id number] Jonah Hernandes [id number] Jonah Hernandes Notes Date Note Type Note Provider Name and Address Organization Details Recorded Time 02/19/2022 text/html 66 yo male with H/O kidney stones and BPH symptoms. He passed stones in 2015 and 2016. He had an episode of urinary retention in 2014 (may have taken a cold medication).He is on Flomax 0.8 mg daily. - s/p Left ureteroscopy with laser lithotripsy - (01/23/21) 03/13/21 - He presents for follow-up on urination. He voids every 2 hours during the day and 1-2x/night. His stream is a little stronger. He denies hesitancy and urgency. He denies abdominal or flank pain. 02/19/22 - He presents for follow-up on kidney stones and urination. He denies abdominal or flank pain. He notes hesitancy and slow stream/incomplete emptying. He voids every 1-2 hours during the day and 0-3x/night. _ PSA - 1.53 (02/20/16)- 1.89 (04/17/17)- 1.67 (04/28/19)- 1.87 (05/03/20)- 1.72 (05/15/21) CT scan (12/18/16) - Left - several small (1-2 mm) stones in left kidney - 3 mm in distal Left ureter - no stones in Right kidney. CT scan (01/20/21) - Left - 8 mm stone (proximal ureter) - Right - 2 mm stone (lower pole) CT scan (01/31/22) - Right - 3 mm stone (upper pole) - 4 mm stone (lower pole) - Left - no stones 24 Hr Urine (06/28/17) - low UO (1.4 L) - high Calcium (319 mg)- normal Oxalate (33 mg) - Citrate (1392 mg) - Mg (88 mg) - Phos (1.270) - Uric acid (0.656) - Sodium (127 mg) Jimmy Pierre MD [address] [place] [address],[address], [place], [address], [facility] 02/19/2022 19:14:06 06/06/2022 text/html 66 yo male with H/O kidney stones and BPH symptoms. He passed stones in 2015 and 2016. He had an episode of urinary retention in 2014 (may have taken a cold medication).He is on Flomax 0.8 mg daily and Cialis 5 mg daily. - s/p Left ureteroscopy with laser lithotripsy - (01/23/21) 03/13/21 - He presents for follow-up on urination. He voids every 2 hours during the day and 1-2x/night. His stream is a little stronger. He denies hesitancy and urgency. He denies abdominal or flank pain. 02/19/22 - He presents for follow-up on kidney stones and urination. He denies abdominal or flank pain. He notes hesitancy and slow stream/incomplete emptying. He voids every 1-2 hours during the day and 0-3x/night. 06/06/22 - He presents for follow-up on Kidney stones. He denies abdominal or flank pain. he states urination is better with Cialis. He voids every 3 hours during the day and 1x/night. He notes hesitancy and slow stream - denies dysuria.- UA - neg blood, neg morro- PVR - 72mL- CT scan (06/06/22) - Right - 3 mm stone (upper pole) - Left - no stones PSA - 1.53 (02/20/16)- 1.89 (04/17/17)- 1.67 (04/28/19)- 1.87 (05/03/20)- 1.72 (05/15/21) CT scan (12/18/16) - Left - several small (1-2 mm) stones in left kidney - 3 mm in distal Left ureter - no stones in Right kidney. CT scan (01/20/21) - Left - 8 mm stone (proximal ureter) - Right - 2 mm stone (lower pole) CT scan (01/31/22) - Right - 3 mm stone (upper pole) - 4 mm stone (lower pole) - Left - no stones CT scan (06/06/22) - Right - 3 mm stone (upper pole) - Left - no stones 24 Hr Urine (06/28/17) - low UO (1.4 L) - high Calcium (319 mg)- normal Oxalate (33 mg) - Citrate (1392 mg) - Mg (88 mg) - Phos (1.270) - Uric acid (0.656) - Sodium (127 mg) Jimmy Pierre MD [address] [place] [address],[address], [place], [address] 06/06/2022 18:11:38 12/05/2022 text/html 67 yo male with H/O kidney stones and BPH symptoms. He passed stones in 2015 and 2016. He had an episode of urinary retention in 2014 (may have taken a cold medication).He is on Flomax 0.8 mg daily and Cialis 5 mg daily. - s/p Left ureteroscopy with laser lithotripsy - (01/23/21) 06/06/22 - He presents for follow-up on Kidney stones. He denies abdominal or flank pain. he states urination is better with Cialis. He voids every 3 hours during the day and 1x/night. He notes hesitancy and slow stream - denies dysuria. 12/05/22 - He presents for follow-up on urination and kidney stones. He denies abdominal or flank pain. He voids every 2-3 hours during the day and 1-2x/night. He reports occasional hesitancy / slow stream (usually at night).- PVR - 119 mL- PSA - 1.9ng/ml- KUB (12/05/22) - no stone seen PSA - 1.53 (02/20/16)- 1.89 (04/17/17)- 1.67 (04/28/19)- 1.87 (05/03/20)- 1.72 (05/15/21)- 1.9 (12/05/22) CT scan (12/18/16) - Left - several small (1-2 mm) stones in left kidney - 3 mm in distal Left ureter - no stones in Right kidney. CT scan (01/20/21) - Left - 8 mm stone (proximal ureter) - Right - 2 mm stone (lower pole) CT scan (01/31/22) - Right - 3 mm stone (upper pole) - 4 mm stone (lower pole) - Left - no stones CT scan (06/06/22) - Right - 3 mm stone (upper pole) - Left - no stones KUB (12/05/22) - no stone seen 24 Hr Urine (06/28/17) - low UO (1.4 L) - high Calcium (319 mg)- normal Oxalate (33 mg) - Citrate (1392 mg) - Mg (88 mg) - Phos (1.270) - Uric acid (0.656) - Sodium (127 mg) Jimmy Pierre MD [address] [place] [address],[address], [address], [facility] 12/05/2022 18:07:54 03/23/2024 text/html 68 yo male with H/O kidney stones and BPH symptoms. He passed stones in 2016 and 2017. He had an episode of urinary retention in 2014 (may have taken a cold medication).He is on Flomax 0.8 mg daily and Cialis 5 mg daily. - s/p Left ureteroscopy with laser lithotripsy - (01/23/21) 06/06/22 - He presents for follow-up on Kidney stones. He denies abdominal or flank pain. he states urination is better with Cialis. He voids every 3 hours during the day and 1x/night. He notes hesitancy and slow stream - denies dysuria. 12/05/22 - He presents for follow-up on urination and kidney stones. He denies abdominal or flank pain. He voids every 2-3 hours during the day and 1-2x/night. He reports occasional hesitancy / slow stream (usually at night). 03/23/24-He presents for follow-up on urination and kidney stones. He denies abdominal or flank pain. He voids every 2-3 hours during the day and 1-2x/night. He reports Right testicular swelling for several months - no history of trauma - no redness or pain.- PVR = 76 mL- PSA - 2.4- KUB (03/23/24) - no kidney stones seen - 9 mm calcification (Left side) - correlates with calcification near descending colon on recent CT scan PSA - 1.53 (02/20/16)- 1.89 (04/17/17)- 1.67 (04/28/19)- 1.87 (05/03/20)- 1.72 (05/15/21)- 1.9 (12/05/22)- 2.4 (04/02/24) CT scan (12/18/16) - Left - several small (1-2 mm) stones in left kidney - 3 mm in distal Left ureter - no stones in Right kidney.CT scan (01/20/21) - Left - 8 mm stone (proximal ureter) - Right - 2 mm stone (lower pole)CT scan (01/31/22) - Right - 3 mm stone (upper pole) - 4 mm stone (lower pole) - Left - no stonesCT scan (06/06/22) - Right - 3 mm stone (upper pole) - Left - no stonesCT scan (02/11/24) - Right - 3mm & 1 mm stones (upper pole) - 1 mm stone (mid-kidney) - Left - 1 mm stone (lower pole) KUB (12/05/22) - no stone seenKUB (12/16/24) - no kidney stones seen - 9 mm calcification (Left side) - correlates with calcification near descending colon on recent CT scan 24 Hr Urine (06/28/17) - low UO (1.4 L) - high Calcium (319 mg)- normal Oxalate (33 mg) - Citrate (1392 mg) - Mg (88 mg) - Phos (1.270) - Uric acid (0.656) - Sodium (127 mg) Jimmy Pierre MD [address] [facility],[address], [place], [address], [facility] 03/23/2024 18:51:04
[2024-04-30 10:22] VITALS: BP 119/67; PULSE 52; RESP 18; TEMP 36.6; O2SAT 97; BMI 26.5
--- NOTE | 2024-04-30 10:34 | ED.ABDPAIN ---
HPI - Abdominal Pain General Chief Complaint: Flank Pain Stated Complaint: Kidney stone Time Seen by Provider: 04/30/24 10:34 History of Present Illness HPI narrative: Patient presents to the emergency department complaining of right flank pain. Patient states this pain came on suddenly and feels like kidney stones he has had in the past. Patient becomes nauseous and diaphoretic with the pain. Denies any notable blood in his urine. Denies fever at home. 68-year-old man presenting to the emergency department with complaint of relatively abrupt onset of right area flank and side pain. Does have a history of kidney stones. Does have a history also aortic aneurysm. He does report regular imaging for this last he thinks a couple of months ago. Does not have any dysuria. No hematuria. No fever. Has been feeling nauseated with the pain. Related Data Home Medications ?Medication ?Instructions ?Recorded ?Confirmed betamethasone dipropionate 0.05 % 1 topical BID 10/12/21 07/04/23 lotion fluticasone propionate 50 2 intranasal DAILY 10/12/21 07/04/23 mcg/actuation nasal spray,suspension lansoprazole 15 mg capsule,delayed 15 mg PO QDAY 10/12/21 04/30/24 release [id number] 3.5 4 drp otic (ear) TID 10/12/21 04/30/24 mg-10,000 unit/mL-1 % ear drops,susp ondansetron HCl 4 mg tablet mg PO PRN 10/12/21 07/04/23 tamsulosin 0.4 mg capsule 0.4 mg PO DAILY 10/12/21 04/30/24 Previous Rx's ?Medication ?Instructions ?Recorded tamsulosin 0.4 mg capsule (Flomax) 0.4 mg PO DAILY #15 caps 04/30/24 Allergies Allergy/AdvReac Type Severity Reaction Status Date / Time oxycodone AdvReac Intermediate Verified 07/04/23 14:26 UNLISTED ALLERGEN (INCLUDE Allergy Unknown Uncoded 07/04/23 14:26 DETAIL I VENOM-YELLOW JACKET Allergy Unknown Uncoded 07/04/23 14:26 Review of Systems Status of ROS Reports: 6 or more systems reviewed and unremarkable except as noted in History and below PFSH PFSH Social History Smoking Status: Never smoker Non-prescribed substance use: denies use Exam Narrative: Exam Narrative: Pleasant. Clearly uncomfortable. Skin is warm and dry. Extremities are well perfused without edema. Breathing easily and lungs would appear to be clear. Abdomen is soft with some right flank area discomfort. No masses appreciated. Heart in slower rate but regular rhythm. Const: Vital Signs, click to edit/add: Vital Signs - 24 hr 04/30/24 10:22 Temperature 97.8 F Pulse Rate [Right Pulse Oximeter] 52 L Respiratory Rate 18 Blood Pressure [Ri ght Upper Arm] 119/67 Pulse Oximetry 97 Oxygen Delivery Me thod Room Air Documenting provider has reviewed patient's vital signs: yes Course Vital Signs Vital signs: Initial Vital Signs Temperature 97.8 F 04/30/24 10:22 Temperature Source Temporal Artery Scan 04/30/24 10:22 Pulse Rate 52 L 04/30/24 10:22 Pulse Rhythm Regular 04/30/24 10:22 Pulse Strength 3+ Normal 04/30/24 10:22 Respiratory Rate 18 04/30/24 10:22 Blood Pressure 119/67 04/30/24 10:22 Blood Pressure Mean 84 04/30/24 10:22 Blood Pressure Position Sitting 04/30/24 10:22 Pulse Oximetry 97 04/30/24 10:22 Oxygen Delivery Method Room Air 04/30/24 10:22 Vital Signs Temperature 97.8 F 04/30/24 10:22 Pulse Rate 52 L 04/30/24 10:22 Respiratory Rate 18 04/30/24 10:22 Blood Pressure 119/67 04/30/24 10:22 Pulse Oximetry 97 04/30/24 10:22 Oxygen Delivery Method Room Air 04/30/24 10:22 Temperature 97.8 F 04/30/24 10:22 Pulse Rate 61 04/30/24 12:30 Respiratory Rate 14 04/30/24 12:30 Blood Pressure 119/67 04/30/24 10:22 Pulse Oximetry 98 04/30/24 13:06 Oxygen Delivery Method Room Air 04/30/24 10:22 Medications Administered Medications: Discontinued Medications Generic Name Dose Route Start Last Admin Trade Name Freq PRN Reason Stop Dose Admin Ketorolac Tromethamine 30 mg 04/30/24 10:39 04/30/24 11:01 Ketorolac 30 Mg/Ml Inj IVP 04/30/24 10:40 30 mg ONCE ONE Administration Morphine Sulfate 4 mg 04/30/24 10:39 04/30/24 11:09 Morphine 4 Mg/Ml Inj IVP 04/30/24 10:40 4 mg ONCE ONE Administration Ondansetron HCl 4 mg 04/30/24 11:03 04/30/24 11:09 Ondansetron 2 Mg/Ml Inj IVP 04/30/24 11:04 4 mg ONCE ONE Administration MDM - Abdominal Pain MDM Narrative Medical decision making narrative: Given description and onset I would suspect ureteral stone and colic. We discussed potential imaging for this. Possible dissection with a history of aneurysm. Story and location of referred pain appears consistent with kidney stone. This would feel similar to him to prior. UTI would be in differential as well. Was able to locate prior imaging from February of 2024. This does confirm stone burden on the right of 3 mm and 2 mm intrarenal stones. We discussed reimaging but he would prefer to defer. I am not in disagreement. IV was established and was given ketorolac, morphine for more immediate effect and Zofran. On reassessment was markedly improved. Labs are reassuring; creatinine 0.8 Did not obtain urinalysis prior to departure. Apparently marked nausea with oxycodone See patient discharge plan for further discussion Continue to do your best to stay hydrated. As usual, strain your urine over the next week or so. Be seen for uncontrolled pain, repeated vomiting, fever, pain lasting 5 days. Take Flomax until suspect stone has passed. You do not need to take anymore today. Prescribing <del>Percocet</del> and Zofran from [facility]. Will send Flomax (and Miranda) to the pharmacy Can take up to 800 mg of ibuprofen or up to 1000 mg of acetaminophen per dose. Remember that each tablet of Percocet contains 325 mg of acetaminophen. Medical Records Attestation: I reviewed the patient's medical records. Lab Data Attestation: I reviewed the patient's lab results. Labs: Lab Results 04/30/24 Range/Units 11:00 WBC 5.92 (4.50-11.00) K/uL RBC 4.51 (4.30-5.90) m/uL Hgb 14.5 (13.5-17.5) gm/dL Hct 43.4 (37.0-53.0) % MCV 96 (80-100) fL MCH 32 (26-34) pg MCHC 33 (32-36) gm/dL RDW Coeff of Ronald 13.0 (11.5-15.5) % Plt Count 220 (140-440) K/uL Neut % (Auto) 62.5 (42.0-72.0) % Lymph % (Auto) 23.6 (20-44) % Izard % (Auto) 7.6 (0.0-11.0) % Eos % (Auto) 5.6 (0.0-7.0) % Baso % (Auto) 0.5 (0.0-3.0) % Neut # (Auto) 3.70 (1.7-7.0) K/uL Lymph # (Auto) 1.40 (0.90-2.90) K/uL Izard # (Auto) 0.40 (0.00-0.90) K/UL Eos # (Auto) 0.33 (0.00-0.50) K/uL Baso # (Auto) 0.03 (0.00-0.30) K/uL Abs Immat Gran (auto) 0.01 (0.00-0.30) K/uL Imm/Tot Granulo (auto) 0.2 % Sodium 139 (135-149) mmol/L Potassium 4.1 (3.6-5.1) mmol/L Chloride 106 (96-114) mmol/L Carbon Dioxide 25 (20-32) mmol/L Anion Gap 8 (7-15) mEq/L BUN 22 (7-30) mg/dL Creatinine 0.8 (0.5-1.5) mg/dL Estimated Creat Clear 70.97 Estimated GFR 95 ml/min Glucose 118 H (60-115) mg/dL Calcium 9.9 (8.4-10.6) mg/dL Discharge Plan Discharge Clinical Impression: Ureteral calculus, Ureteral colic Patient Disposition: Home w/ Parent or Adult Condition: Improved Additional Instructions: Continue to do your best to stay hydrated. As usual, strain your urine over the next week or so. Be seen for uncontrolled pain, repeated vomiting, fever, pain lasting 5 days. Take Flomax until suspect stone has passed. You do not need to take anymore today. Prescribing <del>Percocet</del> and Zofran from [facility]. Will send Flomax (and Miranda) to the pharmacy Can take up to 800 mg of ibuprofen or up to 1000 mg of acetaminophen per dose. Remember that each tablet of Percocet contains 325 mg of acetaminophen. Prescriptions: New tamsulosin [Flomax] 0.4 mg capsule 0.4 mg PO DAILY Qty: 15 0RF No Action lansoprazole 15 mg capsule,delayed release(DR/EC) 15 mg PO QDAY ondansetron HCl 4 mg tablet PO PRN [id number]-oajfkbabn-GU 3.5-10,000-1 mg/mL-unit/mL-% drops,suspension 4 drp otic (ear) TID betamethasone dipropionate 0.05 % lotion 1 topical BID fluticasone propionate 50 mcg/actuation spray,suspension 2 intranasal DAILY tamsulosin 0.4 mg capsule 0.4 mg PO DAILY Follow Up/Referrals: Mitesh Ayala MD [Primary Care Provider] - Stand Alone Forms: [employer] Info Instructions
[2024-04-30] MEDS: KETOROLAC 30 MG/ML inj IVP (11:01)
[2024-04-30 11:08] LABS: Basophils Absolute Auto 0.03 K/uL (0.00-0.30); Basophils Percent Auto 0.5 % (0.0-3.0); Eosinophils Absolute Auto 0.33 K/uL (0.00-0.50); Eosinophils Percent Auto 5.6 % (0.0-7.0); Hematocrit 43.4 % (37.0-53.0); Hemoglobin* 14.5 gm/dL (13.5-17.5); Immature Granulocytes Abs Auto 0.01 K/uL (0.00-0.30); Immature Granulocytes Pct Auto 0.2 %; Lymphocytes Percent Auto 23.6 % (20-44); Mean Corpuscular HGB Conc 33 gm/dL (32-36); Mean Corpuscular Hemoglobin 32 pg (26-34); Mean Corpuscular Volume 96 fL (80-100); Monocytes Percent Auto 7.6 % (0.0-11.0); Neutrophils Percent Auto 62.5 % (42.0-72.0); Platelet Count* 220 K/uL (140-440); Red Blood Count 4.51 m/uL (4.30-5.90); White Blood Count* 5.92 K/uL (4.50-11.00)
[2024-04-30] MEDS: ONDANSETRON 2 MG/ML inj 4 MG IVP (11:09)
[2024-04-30] MEDS: MORPHINE 4 MG/ML INJ IVP (11:09)
[2024-04-30 11:13] LABS: Slide Review Reflex No
[2024-04-30 11:21] LABS: Chloride* 106 mmol/L (96-114); Potassium* 4.1 mmol/L (3.6-5.1); Sodium* 139 mmol/L (135-149)
[2024-04-30 11:24] LABS: Anion Gap 8 mEq/L (7-15); Blood Urea Nitrogen* 22 mg/dL (7-30); Calcium* 9.9 mg/dL (8.4-10.6); Carbon Dioxide* 25 mmol/L (20-32); Creatinine* 0.8 mg/dL (0.5-1.5); Est. Creatinine Clearance* 70.97; Estimated Glomerular Filt Rate 95 ml/min; Glucose* 118 mg/dL (60-115)
[2024-04-30 12:30] VITALS: PULSE 61; RESP 14; O2SAT 98
[2024-04-30 13:06] VITALS: O2SAT 98
== END 2024-04-30 13:09 | disposition home or self-care (01) ==
PROVIDERS: Emergency Provider Family Medicine; PCP Family Medicine
DX: N20.1 Calculus of ureter (principal)
CPT/HCPCS: 36415; 80048; 81001; 85025; 94761; 96374; 96375; 99284; J1885; J2270; J2405

== ENCOUNTER 2024-07-23 16:45 | Outpatient (RCR) | payer MEDICARE, BC, SELFPAY | END 2024-07-30 14:29 | disposition home or self-care (01) | PROVIDERS: PCP Family Medicine; Visit Provider Family Medicine | DX: M79.601 Pain in right arm (principal); M25.531 Pain in right wrist; M77.11 Lateral epicondylitis, right elbow; R53.1 Weakness; Z51.89 Encounter for other specified aftercare | CPT/HCPCS: 97035; 97110; 97140; 97166; X5282 ==